=== PATIENT | male | born 1940 | race Caucasian/White ===

== ENCOUNTER 2020-10-27 15:40 | Inpatient (IN) | payer MEDICARE, OTHER, SELFPAY ==
[2020-10-27] VITALS (15 sets, daily range): BP systolic 124–234; BP diastolic 50–96; PULSE 57–97; RESP 16–20; TEMP 36.6–36.7; O2SAT 95–97; BMI 26.2
--- NOTE | ~2020-10-27 | XR_ITS ---
EXAMINATION: XR chest 1V portable DATE: 10/27/2020 16:48 INDICATION: Left chest pain. Dyspnea with exertion. TECHNIQUE: A single frontal view of the chest was obtained. COMPARISON: Chest single view 08/11/2013, CT abdomen and pelvis 08/17/2013 FINDINGS: There are lucencies in the lungs, consistent with emphysema. No pleural effusion or pneumot horax. The heart size is normal. IMPRESSION: 1. Emphysema. Reviewed, dictated and finalized at location B. IMPRESSION: 1. Emphysema.
--- NOTE | ~2020-10-27 | US_ITS ---
EXAMINATION: US retroperitoneal duplex ltd DATE: 10/28/2020 11:17 INDICATION: Hypertension. TECHNIQUE: Multiple grayscale, color Doppler, and pulsed Doppler images of the kidneys and renal jenny andre were obtained. COMPARISON: CT abdomen and pelvis 08/17/2013 FINDINGS: The aorta peak systolic velocity is 51 cm/s. The right renal artery peak systolic velocity is 48 cm/s in the proximal segment, 54 cm/s in the mid segment, and 47 cm/s in the distal segment. The left cynthia al artery peak systolic velocity is 172 cm/s in the proximal segment, 187 cm/s in the mid segment, an d 87 cm/s in the distal segment. IMPRESSION: 1. Moderate to severe left-sided renal artery stenosis. Confirmation with abdomen CTA is recommended if intervention is contemplated. Reviewed, dictated and finalized at location B. IMPRESSION: 1. Moderate to severe left-sided renal artery stenosis. Confirmation with abdo men CTA is recommended if intervention is contemplated.
--- NOTE | 2020-10-27 15:53 | ECG_ITS ---
Measurements Intervals [place] Rate: 100 P: 56 IN: 138 QRS: 36 QRSD: 102 T: 53 QT: 362 QTc: 469 Interpretive Statements SINUS TACHYCARDIA POSSIBLE LEFT ATRIAL ENLARGEMENT CONSIDER INFERIOR INFARCT, AGE INDETERMINATE BORDERLINE ST-T WAVE ABNORMALITY- ANTEROLAT/HIGH LAT LEADS BASELINE WANDER- V3 ABNORMAL ECG Electronically Signed On 10-27-2020 16:21:06 CDT by Ron Carbajal D.O.
--- NOTE | 2020-10-27 16:22 | ED.GENADULT ---
HPI - General Adult General Chief complaint: Recheck/Abnormal Lab/Rx Stated complaint: high blood pressure Time Seen by Provider: 10/27/20 16:17 Source: patient and family Mode of arrival: ambulatory Limitations: no limitations History of Present Illness HPI narrative: 80 years old white male presented to the ED with intermittent pain at the back of left arm with elevated blood pressure over the last 24 hours. Patient denies any chest pain or shortness of breath. Patient used to be on lisinopril 5 mg once a day, increased up to 10 mg once a day over the last 4 days. Blood pressure on arrival to the emergency room 234/69, when I went see the patient in the room 207/122. Currently patient is asymptomatic. History of diabetes, hypertension, hyperlipidemia, thyroidectomy, carotid endarterectomy, gout, GERD, aortofemoral bypass. Patient does not smoke or drink or uses drugs. Patient lives alone. Usually go to [facility] but he was concerned today about the possibility of heart attack that is why he came to us.. Patient denies any fever, chills, nausea, vomiting, shortness of breath, chest pain. Been vaccinated for COVID-19, Pfizer, weeks ago Related Data Allergies Allergy/AdvReac Type Severity Reaction Status Date / Time adhesive tape Allergy Severe BLISTERS Verified 01/26/17 06:44 Review of Systems Review of Systems: Narrative: CONSTITUTIONAL: Denies fever, chills, or sweats. EYES: Denies visual changes, redness, or discharge. ENT: Denies rhinorrhea, congestion, sore throat, or otalgia. CARDIOVASCULAR: Denies chest pain, palpitations, or edema. RESPIRATORY: Denies cough or dyspnea. GASTROINTESTINAL: Denies abdominal pain, nausea, vomiting, or diarrhea. GENITOURINARY: Denies dysuria or hematuria. SKIN: Denies rash or itching. MUSCULOSKELETAL: Denies back pain, joint pain, or myalgia. NEUROLOGIC: Denies headache, numbness, or weakness. PSYCHIATRIC: Denies anxiety or depression. [facility] Family History Family History Father Family history of cardiovascular disease Mother Family history of cardiovascular disease Family history of chronic obstructive pulmonary disease Other Diabetes mellitus Social History Social History Smoking status: Former smoker Smoking end date: 06/06/89 Alcohol intake: never Exam Narrative: Exam Narrative: General appearance: Well-developed, well-nourished Skin: Normal color Head: Normocephalic, nontraumatic Eyes: Clear conjunctiva ENT: Oropharynx normal, ears normal, nose normal Neck: Supple, nontender Chest and respiratory: Airway patent, no respiratory distress, no accessory muscle use Heart: Regular rate/rhythm Abdomen: Soft, nontender, no organomegaly, quiet bowel sounds Vascular: Normal peripheral pulses, normal capillary refill. Musculoskeletal: Normal range of motion, nontender back Neurologic: Alert and oriented ?3, PHARMACIST ASSISTANT is normal as tested, no gross motor deficit Course Course Emergency Course: Stable Vital Signs Vital signs: Vital Signs Pulse Rate 97 10/27/20 15:58 Respiratory Rate 16 10/27/20 15:58 Blood Pressure 234/96 H 10/27/20 15:58 Pulse Oximetry 96 10/27/20 15:58 Pulse Rate 97 10/27/20 15:58 Respiratory Rate 16 10/27/20 15:58 Blood Pressure 234/96 H 10/27/20 15:58 Pulse Oximetry 96 10/27/20 15:58 Medical Decision Making MDM Narrative Medical decision making narrative: Patient presents with intermittent left arm pain and elevated blood pressure. Labs, EKG, chest x-ray, IV Lopressor 5 mg x 3, Nitropaste 1 inch, aspirin. Further plan to follow. Please look
[2020-10-27] MEDS: ASPIRIN 81 MG CHEWABLE TABLET 324 MG PO (16:46)
[2020-10-27] MEDS: NITROGLYCERIN OINTMENT 1 INCH DOSE TRANSDERM (16:48)
[2020-10-27] MEDS: ONDANSETRON INJ 4 MG/2 ML VIAL IV PUSH (16:48)
[2020-10-27] MEDS: METOPROLOL TARTRATE INJ 5 MG/5 ML VIAL IV PUSH ×3 (16:49→17:22)
[2020-10-27 16:55] LABS: Basophils Percent Auto 0.2 % (0.2-1.2); Eosinophils Absolute Auto 0.1 K/mm3 (0-0.3); Eosinophils Percent Auto 1.2 % (0-4.4); Hematocrit 44.6 % (42.0-52.0); Hemoglobin 14.4 g/dL (14.0-18.0); Immature Granulocyte Absolute 0.02 K/mm3 (0.00-0.031); Immature Granulocyte Percent A 0.5 % (0-0.5); Immature Platelet Fraction Pct 5.3 % (0.9-11.2); Lymphocytes Absolute Auto 0.46 K/mm3 (0.9-3.2); Lymphocytes Percent Auto 10.6 % (18.3-44.2); Mean Corpuscular HGB Conc 32.3 g/dl (32-36); Mean Corpuscular Volume 92.9 fl (80-100); Mean Platelet Volume 10.8 fl (7.4-10.4); Monocytes Absolute Auto 0.4 K/mm3 (0.1-0.6); Monocytes Percent Auto 8.1 % (2.6-8.5); Neutrophils Absolute Auto 3.5 K/mm3 (1.3-6.7); Neutrophils Percent Auto 79.4 % (45.5-73.1); Platelet Count Result 128 k/mm3 (150-375); Red Cell Distribution Width 14.2 % (11.5-14.5); White Blood Count 4.3 K/mm3 (4.5-10.0)
[2020-10-27 17:03] LABS: Alanine Aminotransferase 18 U/L (4-50); Albumin Level 4.3 g/dL (3.5-5.1); Alkaline Phosphatase 99 U/L (38-126); Anion Gap 5 mmol/L (8-16); Aspartate Amino Transferase 27 U/L (17-59); Bilirubin,Total 0.9 mg/dL (0.2-1.3); Blood Urea Nitrogen 21 mg/dL (9-20); Calcium 9.5 mg/dL (8.4-10.2); Carbon Dioxide 29 mmol/L (22-30); Chloride 102 mmol/L (98-107); Estimated CRCL calculation 34 ml/min; Estimated Glomerular Filt Rate 49; Glucose 171 mg/dL (75-110); Potassium 3.3 mmol/L (3.4-5.0); Sodium 136 mmol/L (137-145)
[2020-10-27 17:04] LABS: INR 0.9; Prothrombin Time 12.7 Seconds (11.1-14.7)
[2020-10-27 17:16] LABS: NT Pro B Type Natriuretic Pept 1250 pg/mL (5-100)
--- NOTE | 2020-10-27 17:29 | ECG_ITS ---
Measurements Intervals [place] Rate: 57 P: 45 DC: 135 QRS: 22 QRSD: 102 T: 184 QT: 440 QTc: 431 Interpretive Statements SINUS BRADYCARDIA LEFT VENTRICULAR HYPERTROPHY AND ST-T CHANGE BORDERLINE ST-T WAVE ABNORMALITY- LAT/HIGH LAT LEADS BASELINE ARTIFACT- I, II, AVR, AVL, AVF BORDERLINE ECG Electronically Signed On 10-27-2020 20:28:19 CDT by Ron Carbajal D.O.
[2020-10-27] MEDS: POTASSIUM CHLORIDE 20 MEQ TABLET 40 MEQ PO (17:44)
[2020-10-27] MEDS: ENOXAPARIN 80 MG/0.8 ML SYRINGE SUB-Q (17:44)
--- NOTE | 2020-10-27 19:00 | ADMGEN ---
This patient, Anuel Amos, was admitted to IMU Room 205-01 at 1900 on 10/27/2020. Patient/family oriented to hospital policies and general routines including ID bracelet, bed and alarms, visiting hours, pain management, procedures, bathroom and other care routines, personal items, smoking policy, room service/diet, and visiting hours. Information on how to activate the Rapid Response Team has been discussed. Patient/Family are encouraged to report perceived risks to care and to ask questions if they do not understand what they are told or what they should do.
[2020-10-27 19:28] LABS: Glucose Point of Care 116 mg/dl (65-105)
--- NOTE | 2020-10-27 20:29 | PC.NURSE ---
This patient, Anuel Amos, was admitted to IMU Room 205-01. Patient/family oriented to hospital policies and general routines including ID bracelet, bed and alarms, visiting hours, pain management, procedures, bathroom and other care routines, personal items, smoking policy, room service/diet, and visiting hours. Information on how to activate the Rapid Response Team has been discussed. Patient/Family are encouraged to report perceived risks to care and to ask questions if they do not understand what they are told or what they should do.
[2020-10-27] MEDS: amLODIPine BESYLATE 5 MG TABLET PO (22:20)
[2020-10-27] MEDS: ATORVASTATIN 40 MG TABLET PO (22:20)
[2020-10-27] MEDS: GABAPENTIN 300 MG CAPSULE 900 MG PO (22:21)
[2020-10-27] MEDS: lisinopriL 5 MG TABLET PO (22:21)
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
[2020-10-28] VITALS (18 sets, daily range): BP systolic 110–191; BP diastolic 40–82; PULSE 58–92; RESP 16–20; TEMP 36.2–36.6; O2SAT 96–99
--- NOTE | 2020-10-28 | ECHO_ITS ---
Patient Info Name: Anuel Amos Age: 80 years : 1940 Gender: Male Ht: 68 in Wt: 176 lbs BSA: 1.97 m2 HR: 59 bpm BP: 126 / 53 mmHg Technical Quality: Good Exam Date: 10/28/2020 8:54 AM Exam Location: [facility] Pulmonary Patient Status: Inpatient Admit Date: 10/27/2020 Staff Ordering Physician: Percy Burnett MD Adult Care Manager: Marisol Hunter RDCS Attending Provider: Luz Zepeda PA-C Exam Type: CA echo doppler color flow Study Info Complete two-dimensional, color flow and Doppler transthoracic echocardiogram is performed. Summary 1. Complete two-dimensional, color flow and Doppler transthoracic echocardiogram is performed. 2. Left ventricular chamber dimension is normal. 3. Left ventricular systolic function is normal, estimated at 50-55%. 4. There is moderate aortic valve sclerosis with mild restricted leaflet motion however no significant aortic stenosis. 5. There is mild mitral valve regurgitation. 6. There is trace tricuspid valve regurgitation. 7. Dilated inferior vena cava with <50% collapse upon inspiration consistent with elevated right atrial pressure. 8. The prox ascending aorta size is normal. 9. There is no pericardial effusion. Left Ventricle Left ventricular chamber dimension is normal. Left ventricular systolic function is normal, estimated at 50-55%. There is no increased left ventricular wall thickness. Left ventricular septal wall motion is normal. The left ventricular diastolic function is grade II diastolic dysfunction. Right Ventricle Right ventricular chamber dimension is normal. Right ventricular systolic function is normal. Left Atria Left atrial chamber dimension is normal. Right Atria Right atrial chamber dimension is normal. Aortic Valve The aortic valve is trileaflet. There is moderate aortic valve sclerosis with mild restricted leaflet motion however no significant aortic stenosis. There is no aortic valve stenosis. There is mild aortic valve regurgitation. Pulmonic Valve The pulmonic valve is normal. There is no pulmonic valve stenosis. There is no pulmonic regurgitation. Mitral Valve The mitral valve has normal leaflets. There is no mitral valve stenosis. There is mild mitral valve regurgitation. Tricuspid Valve The tricuspid valve leaflets are normal. There is trace tricuspid valve regurgitation. Unable to estimate pulmonary artery systolic pressure due to poor TR jet. Pericardium/Pleural The pericardium appears normal. There is no pericardial effusion. Inferior Vena Cava Dilated inferior vena cava with <50% collapse upon inspiration consistent with elevated right atrial pressure. Aorta The aortic root size at the sinus of Valsalva is normal. The prox ascending aorta size is normal. Left Ventricular Outflow Tract Name Value Normal LVOT 2D LVOT Diameter 2.2 cm LVOT Doppler LVOT Peak Velocity 64 cm/s LVOT Peak Gradient 1 mmHg LVOT Mean Gradient 1 mmHg LVOT VTI 16 cm LVOT VTI/AV VTI Ratio
[2020-10-28 04:55] LABS: Basophils Percent Auto 0.3 % (0.2-1.2); Eosinophils Absolute Auto 0.1 K/mm3 (0-0.3); Eosinophils Percent Auto 2.3 % (0-4.4); Hematocrit 35.8 % (42.0-52.0); Hemoglobin 11.4 g/dL (14.0-18.0); Immature Granulocyte Absolute 0.01 K/mm3 (0.00-0.031); Immature Granulocyte Percent A 0.3 % (0-0.5); Lymphocytes Absolute Auto 0.82 K/mm3 (0.9-3.2); Lymphocytes Percent Auto 20.8 % (18.3-44.2); Mean Corpuscular HGB Conc 31.8 g/dl (32-36); Mean Corpuscular Hemoglobin 29.3 pg (26-34); Mean Platelet Volume 10.7 fl (7.4-10.4); Monocytes Absolute Auto 0.4 K/mm3 (0.1-0.6); Monocytes Percent Auto 10.9 % (2.6-8.5); Neutrophils Absolute Auto 2.6 K/mm3 (1.3-6.7); Neutrophils Percent Auto 65.4 % (45.5-73.1); Platelet Count Result 120 k/mm3 (150-375); Red Blood Count 3.89 M/mm3 (4.6-6.20)
[2020-10-28 05:09] LABS: Alanine Aminotransferase 13 U/L (4-50); Albumin Level 3.1 g/dL (3.5-5.1); Alkaline Phosphatase 78 U/L (38-126); Anion Gap 3 mmol/L (8-16); Aspartate Amino Transferase 20 U/L (17-59); Bilirubin,Total 0.6 mg/dL (0.2-1.3); Blood Urea Nitrogen 22 mg/dL (9-20); Calcium 8.6 mg/dL (8.4-10.2); Carbon Dioxide 32 mmol/L (22-30); Chloride 104 mmol/L (98-107); Estimated CRCL calculation 30 ml/min; Estimated Glomerular Filt Rate 39; Glucose 102 mg/dL (75-110); Magnesium 1.6 mg/dL (1.6-2.3); Potassium 3.7 mmol/L (3.4-5.0); Sodium 139 mmol/L (137-145)
[2020-10-28 05:15] LABS: Hemoglobin A1C 7.4 % (<5.7)
[2020-10-28] MEDS: LEVOTHYROXINE SODIUM 150 MCG TABLET PO (06:23)
--- NOTE | 2020-10-28 06:26 | PC.NURSE ---
Reema held this AM in anticipation of a cardiac cath today.
[2020-10-28 08:21] LABS: Glucose Point of Care 111 mg/dl (65-105)
--- NOTE | 2020-10-28 08:56 | PM.CNCAR ---
Assessment and Plan Assessment and plan (1) Non-ST elevation OR (NSTEMI): Code(s): I21.4 - Non-ST elevation (NSTEMI) myocardial infarction Status: Acute Assessment and Plan: 80 y/o male with no known cardiac history however extensive cardiovascular risk factors including HTN, DM, HLD,CKD, ex smoker as well as strong family history of early onset CAD who presents with left arm pain, HTN emergency and ruled in for OR Trop peaked at 3.7 He is pain free now He was started on therapeutic dose of Lovenox and will need cardiac cathetarization. His creatinine is 1.7 from 1.4 yesterday. Will follow 2D echo and decide on timing of cardiac cath. If EF low or regional wall motion abnormalities noted will plan [facility] today, otherwise will postpone pending stabilization of kidney function. Continue ASA and statin. Check fasting lipid profile. Will add Metoprolol 25 mg daily to his regimen (2) Hypertension, uncontrolled: Code(s): I10 - Essential (primary) hypertension Status: Chronic Assessment and Plan: 230/100 on admission. Now down to 150/80. Will add Metoprolol. Hold Lisinopril 2.5 mg as creatinine rising (3) DM2 (diabetes mellitus, type 2): Code(s): E11.9 - Type 2 diabetes mellitus without complications Status: Chronic Assessment and Plan: HgA1c 7.4 History of Present Illness History of Present Illness Consult date/time: 10/28/20 08:56 80 y/o male with no known cardiac history however extensive cardiovascular risk factors including HTN, DM, HLD,CKD, ex smoker as well as strong family history of early onset CAD who presents with shortness of breath and left arm pain He reports on and off shortness of breath for the last week that feels as if he can't take a full breath. Yesterday he developed upper left arm pain hence he decided to seek medical attention. He rule in for OR with elevated troponin that has peaked at 3.7. He was started on therapeutic dose of Lovenox. His BP was markedly elevated on admission at 230/100. He feels much better this am with no recurrence of left arm pain. He never had any chest pain. He is breathing better as well. His EKG showed sinus rhythm with ST depression in inferior and lateral leads. He has chronic kidney disease and is followed by operative supervisor at the [place]. His Cr on admission was 1.4 and went up to 1.7 this am. Labs otherwise and notable for HgA1c of 7.4. His TSH is elevated at 5.8. free T4 pending. Lipid profile was not sent He quit smoking 24 years ago. Was heavy smoker (packs a day) before he had quit His son in his early 50s with OR. His other son also had OR in his early 50s and has stent placed Reason For Visit: NSTEMI/uncontrolled hypertension/hypokalemia/renal Review of Systems Review of Systems: All systems reviewed & are unremarkable except as noted in HPI and below Constitutional: Constitutional: Denies fatigue and Denies headache(s) Eyes: Eyes: Denies blurry vision ENT: Reports Normal hearing present and Denies headache(s) Cardiovascular: Cardiovascular: Denies chest pain, Denies diaphoresis, Denies pedal edema, Denies leg edema, Denies lightheadedness, Denies palpitations and Denies dyspnea Respiratory: Respiratory: Denies cough and Denies dyspnea Gastrointestinal: Gastrointestinal: Denies abdominal pain Musculoskeletal: Musculoskeletal: Denies back pain Neurologic: Reports Normal hearing present and Denies headache(s) Psychiatric: Psychiatric: Denies anxiety Endocrine: Endocrine: Denies fatigue and Denies palpitations [facility] Past Medical History Medical History (Updated 10/27/20 @ 22:32 by Bianca Alfonso NP) BPH (benign prostatic hyperplasia) Chronic GERD Diabetic neuropathy DM2 (diabetes mellitus, type 2) Gout Hyperlipidemia Hypothyroidism Surgical History Surgical History (Updated 10/27/20 @ 22:32 by Bianca Alfonso NP) H/O aorto-femoral bypass H/O carotid endarterectomy H/O thyroidectomy
[2020-10-28] MEDS: OMEGA 3 POLYUNSAT FATTY ACIDS 1 GM CAP PO (09:58)
[2020-10-28] MEDS: POTASSIUM CHLORIDE 20 MEQ TABLET.ER PO (09:58)
[2020-10-28] MEDS: amLODIPine BESYLATE 5 MG TABLET PO ×2 (09:59→18:29)
[2020-10-28] MEDS: PANTOPRAZOLE 40 MG TABLET PO (09:59)
[2020-10-28] MEDS: GABAPENTIN 300 MG CAPSULE PO (10:00)
--- NOTE | 2020-10-28 10:16 | PM.IMPN ---
Progress Note: A&P Assessment and Plan (1) Non-ST elevation [place] (NSTEMI): Code(s): I21.4 - Non-ST elevation (NSTEMI) myocardial infarction Status: Acute Assessment and Plan: -troponins elevated last being 3.240 but patient is now asymptomatic -echo reviewed by Cardiology he reports a normal EF with no significant valvular disease -chest x-ray clear, appears euvolemic. EKG reviewed with some mild T-wave abnormalities in the lateral leads. 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 He is high risk for cardiovascular disease and I do believe he should have an ischemic evaluation. -creatinine more elevated, could be due to elevated blood pressure on admission. Could be a component of renal artery stenosis since he has known vascular disease. Will order ultrasound of the renal arteries and obtain records from his termite treater -continue therapeutic Lovenox, atorvastatin, and metoprolol. Jitendra/Arb held due to JENNIFFER -spoke with Dr. Bentley about the plan of care (2) Acute on chronic kidney failure: Code(s): N17.9 - Acute kidney failure, unspecified; N18.9 - Chronic kidney disease, unspecified Status: Acute Assessment and Plan: Pt states he has a hx of this and has a termite treater but cannot remember his name. He is at the [place] -He thinks his last Cr was 1.3 -Obtain records -obtain UA as well as u/s of the renal arteries/kidneys -Pt had significantly elevated bp on admission -Cardiology recommends nephrology consult as he may need cardiac cath -Monitor with daily labs (3) DM2 (diabetes mellitus, type 2): Code(s): E11.9 - Type 2 diabetes mellitus without complications Status: Chronic Assessment and Plan: Last glucose 111 -metformin held -continue sliding scale insulin and diabetic diet -last A1c 7.4 (4) Hypertension, uncontrolled: Code(s): I10 - Essential (primary) hypertension Status: Chronic Assessment and Plan: Blood pressure was 154/59 this morning but was elevated further on admission up to 234/96 -lisinopril held due to JENNIFFER -continue amlodipine and now metoprolol added, monitor heart rate -add p.r.n. hydralazine for systolic greater than 175 -check for renal artery stenosis (5) Hypokalemia: Code(s): E87.6 - Hypokalemia Status: Acute Assessment and Plan: Resolved (6) BPH (benign prostatic hyperplasia): Code(s): N40.0 - Benign prostatic hyperplasia without lower urinary tract symptoms Status: Chronic Assessment and Plan: Continue with finasteride (7) Hyperlipidemia: Code(s): E78.5 - Hyperlipidemia, unspecified Status: Chronic Assessment and Plan: Continue with simvastatin -lipid panel ordered (8) Gout: Code(s): M10.9 - Gout, unspecified Status: Chronic Assessment and Plan: Continue with allopurinol -no acute symptoms (9) Hypothyroidism: Code(s): E03.9 - Hypothyroidism, unspecified Status: Chronic Assessment and Plan: Continue with levothyroxine -TSH mildly high, await T4 (10) Diabetic neuropathy: Code(s): E11.40 - Type 2 diabetes mellitus with diabetic neuropathy, unspecified Status: Chronic Assessment and Plan: Continue with gabapentin (11) Chronic GERD: Code(s): K21.9 - Gastro-esophageal reflux disease without esophagitis Status: Chronic Assessment and Plan: No acute symptoms, continue with omeprazole (12) Pancytopenia: Code(s): D61.818 - Other pancytopenia Status: Acute Assessment and Plan: Mild, Noted on labs -will add anemia labs for the morning -monitor platelets while on Lovenox -no signs of viral illness -may need to follow-up with hematology (13) Emphysema lung: Code(s): J43.9 - Emphysema, unspecified Status: Acute Assessment
[2020-10-28 10:53] LABS: Free T4 Free Thyroxine Reflex 1.32 ng/dL (0.78-2.19)
[2020-10-28 11:58] LABS: Hematocrit 39.7 % (42.0-52.0); Hemoglobin 12.8 g/dL (14.0-18.0)
[2020-10-28 11:59] LABS: Total Triiodothyronine (T3) 0.79 NG/ML (0.97-1.69)
--- NOTE | 2020-10-28 12:05 | PM.CNNEP ---
Assessment and Plan Assessment and plan (1) JENNIFFER (acute kidney injury): Code(s): N17.9 - Acute kidney failure, unspecified Status: Acute Assessment and Plan: etiology unclear due to cardiac event/NSTEMI in of itself(?) did apparently have a CT scan with contrast about a week ago...contributing factor? fluctuating BP readings? agree with holding ANN-I for now follow trend of repeat labs and UOP (2) Stage 3a chronic kidney disease: Code(s): N18.31 - Chronic kidney disease, stage 3a Status: Chronic Assessment and Plan: follow with Dr. Ellis at [facility] baseline creatinine runs around 1.3 - 1.5mg/dl in the last year due to HTN, diabetes, vascular disase, and age-related change (3) Non-ST elevation PR (NSTEMI): Code(s): I21.4 - Non-ST elevation (NSTEMI) myocardial infarction Status: Acute Assessment and Plan: as noted by evaluation on admission Cardiology following at risk for contrast nephropathy given need for cardiac catheterization - to reduce risk of CHAKA: -- hold any potential nephrotoxic agents (ANN/ARB, diuretics, NSAIDs...etc) -- limit amount of contrast used if possible -- pre/post IVF hydration within the limits of respiratory status continue medical management (4) Hypertension, uncontrolled: Code(s): I10 - Essential (primary) hypertension Status: Chronic Assessment and Plan: quite elevated on admission/at this time left NISHA noted by renal duplex -- consider intervention with BP fails to respond to conservative therapy would try to avoid overcontrol of BP for fear this may result in renal hypoperfusion and worsen renal function follow trend of hemodynamics (5) DM2 (diabetes mellitus, type 2): Code(s): E11.9 - Type 2 diabetes mellitus without complications Status: Chronic Additional Plan follow accuchecks glycemic control Will continue to follow. History of Present Illness Reason for Consult Consult date: 10/28/20 Chief Complaint Chief complaint: NSTEMI/uncontrolled hypertension/hypokalemia/renal History of Present Illness Narrative: The patient is a 80 y/o male with a past medical history as outlined below who presented to [facility] with complaints of chest pain. He states that he has been having on and off shortness of breath for the last week to the point where he feels like he cannot a full and deep inspiration/expiration. On the day of admission, he noted upper left arm pain that he had never had before in association with the symptoms of shortness of breath. He never had any specific complaints of chest pain, palpitations, dizziness, lightheadedness, or syncope. However, given the persistence of the shortness of breath and with the new cysts symptom of left arm pain, he decided to come to the emergency room for further evaluation Workup and evaluation emergency room demonstrated the patient to be quite hypertensive with a systolic BP in the 230s. Routine blood test demonstrated evidence of mild renal insufficiency but with no other significant findings although his troponin was elevated. given these constellation of symptoms in conjunction with his multiple risk factors for coronary artery disease, he was admitted the hospital for further evaluation and therapy. Since his admission, he has been ruled in for a non ST elevation PR with a peak troponin of 3.7. He is on currently anticoagulation and maximal medical therapy at this time. He has been seen by Cardiology as well with the tentative plan for a possible cardiac catheterization tomorrow. He otherwise does not appear to be any acute distress. Renal consultation was requested after was noted that his creatinine has worsened since his admission. He was admitted with a creatinine of 1.4 mg/dL which has subsequently increased to 1.7 mg[facility]
[2020-10-28 12:29] LABS: Glucose Point of Care 112 mg/dl (65-105)
[2020-10-28 12:30] LABS: Cholesterol 134 mg/dL (0-200); HDL Direct 37 mg/dL; Triglycerides 131 mg/dL (<150)
[2020-10-28 12:52] LABS: LDL Cholesterol Direct 66 mg/dL
[2020-10-28] MEDS: METOPROLOL SUCCINATE EXT REL 25 MG TABCR PO (13:32)
[2020-10-28 16:53] LABS: Glucose Point of Care 117 mg/dl (65-105)
[2020-10-28 17:11] LABS: Add Urine Microscopic? YES; Appearance Urine Clear (Clear); Bilirubin Urine Negative (Negative); Blood Urine Negative (Negative); Color Urine Yellow (Yellow); Glucose Urine UA 3+ mg/dL (Negative); Ketones Urine Negative (Negative); Leukocyte Esterase Ur Negative LEU/UL (Negative); Mucus Urine Rare /lpf; Nitrate Urine Negative (Negative); Protein Urine 1+ mg/dL (Negative); RBC Urine 0-2 /hpf (0-2); Squamous Epithelial Cell Urine Rare /hpf (Few); Urobilinogen Urine Negative mg/dL (<2.0); WBC Urine 0-3 /hpf
[2020-10-28] MEDS: allopurinoL 100 MG TABLET PO (18:29)
[2020-10-28] MEDS: ENOXAPARIN 80 MG/0.8 ML SYRINGE SUB-Q (18:29)
[2020-10-28] MEDS: INSULIN GLARGINE (*BKC) 100 UNITS/ML 14 UNITS SUB-Q (18:29)
[2020-10-28 19:57] LABS: Glucose Point of Care 181 mg/dl (65-105)
[2020-10-28] MEDS: ASPIRIN 81 MG CHEWABLE TABLET PO (20:25)
[2020-10-28] MEDS: ATORVASTATIN 40 MG TABLET PO (20:26)
[2020-10-28] MEDS: GABAPENTIN 300 MG CAPSULE 900 MG PO (20:26)
[2020-10-28] MEDS: TAMSULOSIN HCL 0.4 MG CAPSULE PO (20:27)
[2020-10-28] MEDS: FINASTERIDE 5 MG TABLET PO (20:28)
[2020-10-29] VITALS (30 sets, daily range): BP systolic 117–202; BP diastolic 54–81; PULSE 53–75; RESP 16–22; TEMP 35.9–36.6; O2SAT 92–100
[2020-10-29 05:06] LABS: Anion Gap 2 mmol/L (8-16); Blood Urea Nitrogen 21 mg/dL (9-20); Calcium 8.8 mg/dL (8.4-10.2); Carbon Dioxide 35 mmol/L (22-30); Chloride 102 mmol/L (98-107); Estimated CRCL calculation 32 ml/min; Estimated Glomerular Filt Rate 42; Glucose 108 mg/dL (75-110); INR 0.9; Potassium 4.3 mmol/L (3.4-5.0); Prothrombin Time 13.1 Seconds (11.1-14.7); Sodium 139 mmol/L (137-145)
[2020-10-29 05:13] LABS: Transferrin 271 mg/dL (206-381)
[2020-10-29 05:18] LABS: Iron 53 ug/dL (49-181)
[2020-10-29 05:27] LABS: Percent Iron Saturation 14 % (20-50)
[2020-10-29] MEDS: LEVOTHYROXINE SODIUM 150 MCG TABLET PO (05:28)
[2020-10-29] MEDS: ENOXAPARIN 80 MG/0.8 ML SYRINGE SUB-Q (05:28)
[2020-10-29 06:13] LABS: Folic Acid 13.2 ng/mL (2.76->20)
[2020-10-29 07:31] LABS: Hematocrit 36.8 % (42.0-52.0); Hemoglobin 11.8 g/dL (14.0-18.0)
[2020-10-29 08:06] LABS: Glucose Point of Care 111 mg/dl (65-105)
[2020-10-29] MEDS: PANTOPRAZOLE 40 MG TABLET PO (08:24)
[2020-10-29] MEDS: allopurinoL 300 MG TABLET PO (08:25)
[2020-10-29] MEDS: OMEGA 3 POLYUNSAT FATTY ACIDS 1 GM CAP PO (08:25)
[2020-10-29] MEDS: amLODIPine BESYLATE 5 MG TABLET PO ×2 (08:25→20:26)
[2020-10-29] MEDS: GABAPENTIN 300 MG CAPSULE PO (08:25)
[2020-10-29] MEDS: POTASSIUM CHLORIDE 20 MEQ TABLET.ER PO (08:25)
[2020-10-29] MEDS: CYANOCOBALAMIN INJ 1,000 MCG/ML VIAL 1000 MCG IM (08:26)
[2020-10-29] MEDS: METOPROLOL SUCCINATE EXT REL 25 MG TABCR PO (08:32)
--- NOTE | 2020-10-29 09:48 | PM.PNCARD ---
Progress Note: A&P Assessment and Plan (1) Non-ST elevation PR (NSTEMI): Code(s): I21.4 - Non-ST elevation (NSTEMI) myocardial infarction Status: Acute Assessment and Plan: 80 y/o male with no known cardiac history however extensive cardiovascular risk factors including HTN, DM, HLD,CKD, ex smoker as well as strong family history of early onset CAD who presents with left arm pain, HTN emergency and ruled in for PR Trop peaked at 3.7 He is pain free now EF shows normal LV function and no significant valvular disease His Creatinine is 1.6 this am which is not far from baseline. Will plan LHC/coronary angiogram this afternoon. Minimize contrast use. Explained procedure in details to patient including risks of bleeding, infection, stroke and nephropathy. he is agreeable to proceed Continue ASA. He never received second antiplatelet in case he needs CABG Continue Atrovastatin. LDL is 66. Started Metoprolol 25 mg daily yesterday. HR down to 50s. Will decrease dose to 12.5 mg daily. (2) Hypertension, uncontrolled: Code(s): I10 - Essential (primary) hypertension Status: Chronic Assessment and Plan: 230/100 on admission. Now down to 150/80. Will add Metoprolol. Hold Lisinopril 2.5 mg as creatinine rising (3) DM2 (diabetes mellitus, type 2): Code(s): E11.9 - Type 2 diabetes mellitus without complications Status: Chronic Assessment and Plan: HgA1c 7.4 Subjective Date/time seen: 10/29/20 09:48 He continues to feel well. No recurrence of left arm pain since admission. Shortness of breath has also significantly improved Review of Systems Review of Systems: All systems reviewed & are unremarkable except as noted in HPI and below Constitutional: Constitutional: Denies fatigue and Denies headache(s) Eyes: Eyes: Denies blurry vision ENT: Reports Normal hearing present and Denies headache(s) Cardiovascular: Cardiovascular: Denies chest pain, Denies diaphoresis, Denies pedal edema, Denies leg edema, Denies lightheadedness, Denies palpitations and Denies dyspnea Respiratory: Respiratory: Denies cough and Denies dyspnea Gastrointestinal: Gastrointestinal: Denies abdominal pain Musculoskeletal: Musculoskeletal: Denies back pain Neurologic: Reports Normal hearing present and Denies headache(s) Psychiatric: Psychiatric: Denies anxiety Endocrine: Endocrine: Denies fatigue and Denies palpitations Exam Const: General: no acute distress Eyes: Sclera: sclerae normal Neck: Neck: no JVD Carotids: no bruits Resp: Effort & Inspection: normal respiratory effort Auscultation: clear to auscultation bilaterally Cardio: Jugular venous distension: no JVD Rate: regular rate and not tachycardic Rhythm: regular rhythm Heart sounds: S1 normal heart sound present, S2 normal heart sound present, no gallops, no murmurs and no rubs Peripheral pulses: Peripheral pulses 2+ throughout Skin: General skin exam: normal color Neuro: Cranial nerves: Yes Normal hearing present Speech: normal speech Extrem: General: normal to inspection and no edema Psych: Affect: normal affect Objective Data Vital Signs Vital Signs: Vital Signs - 24 hr 10/28/20 10:00 10/28/20 12:00 10/28/20 13:32 Temperature 36.2 C L Pulse Rate 69 92 67 Respiratory Rate 20 Blood Pressure 191/82 H Pulse Oximetry 99 10/28/20 14:00 10/28/20 16:00 10/28/20 18:00 Temperature 36.2 C L Pulse Rate 65 69 61 Respiratory Rate 20 Blood Pressure 157/67 H Pulse Oximetry 98 10/28/20 19:36 10/28/20 20:00 10/28/20 22:00 Temperature 36.6 C Pulse Rate 62 62 62 Respiratory Rate 18 18 Blood Pressure 119/40 L Pulse Oximetry 99 99 10/28/20 22:06 10/28/20 23:10 10/28/20 23:14 Temperature 36.6 C Pulse Rate 75 76 Respiratory Rate 20 20 Blood Pressure 110/43 L Pulse Oximetry 97 97 97 10/29/20 02:00 10/29/20 04:00 10/29/20 06:00 Temperature 36.6 C Pulse Rate 58 L 53 L
--- NOTE | 2020-10-29 10:27 | PM.IMPN ---
Progress Note: A&P Assessment and Plan (1) Non-ST elevation ME (NSTEMI): Code(s): I21.4 - Non-ST elevation (NSTEMI) myocardial infarction Status: Acute Assessment and Plan: -troponins elevated last being 3.240 but patient is now asymptomatic -echo reviewed by Cardiology he reports a normal EF with no significant valvular disease -chest x-ray clear, appears euvolemic. EKG reviewed with some mild T-wave abnormalities in the lateral leads. 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 He is high risk for cardiovascular disease and they plan to do a cardiac catheterization later today. -creatinine about the same today. Sounds like he has chronic kidney disease which this may be a little worse. Could be due to significant hypertension on admission. 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 -continue therapeutic Lovenox, atorvastatin, and metoprolol (dose lowered today). 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 He is at the [facility] -creatinine this morning was 1.6. Pt had a CT with dye last week according to him, could be a factor -records from [facility] shows Cr 1.3 on 10/17/20 but up to 1.49 in 2019 -Pt sees Dr. Ellis at the [facility] -U/s shows mod/severe left sided NISHA. Monitor Cr closely if he goes back on lisinopril -Pt had significantly elevated bp on admission -nephrology consult (3) DM2 (diabetes mellitus, type 2): Code(s): E11.9 - Type 2 diabetes mellitus without complications Status: Chronic Assessment and Plan: Last glucose 111 -metformin held -continue sliding scale insulin and diabetic diet -last A1c 7.4 (4) Hypertension, uncontrolled: Code(s): I10 - Essential (primary) hypertension Status: Chronic Assessment and Plan: Blood pressure was 143/54 this morning but was elevated further on admission up to 234/96 -lisinopril held due to JENNIFFER -continue amlodipine and now metoprolol -add p.r.n. hydralazine for systolic greater than 175 (5) Hypokalemia: Code(s): E87.6 - Hypokalemia Status: Acute Assessment and Plan: Resolved (6) BPH (benign prostatic hyperplasia): Code(s): N40.0 - Benign prostatic hyperplasia without lower urinary tract symptoms Status: Chronic Assessment and Plan: Continue with finasteride (7) Hyperlipidemia: Code(s): E78.5 - Hyperlipidemia, unspecified Status: Chronic Assessment and Plan: Continue with simvastatin -lipid panel ordered (8) Gout: Code(s): M10.9 - Gout, unspecified Status: Chronic Assessment and Plan: Continue with allopurinol -no acute symptoms (9) Hypothyroidism: Code(s): E03.9 - Hypothyroidism, unspecified Status: Chronic Assessment and Plan: Continue with levothyroxine -TSH mildly high, re-check in 6 weeks after acute illness has resolved (10) Diabetic neuropathy: Code(s): E11.40 - Type 2 diabetes mellitus with diabetic neuropathy, unspecified Status: Chronic Assessment and Plan: Continue with gabapentin (11) Chronic GERD: Code(s): K21.9 - Gastro-esophageal reflux disease without esophagitis Status: Chronic Assessment and Plan: No acute symptoms, continue with omeprazole (12) Pancytopenia: Code(s): D61.818 - Other pancytopenia Status: Acute Assessment and Plan: Mild, Noted on labs and noted on his [facility] labs in the past as well -Pt b12 is low, will replenish -monitor platelets while on Lovenox -no signs of viral illness -may need to follow-up with hem
[2020-10-29 12:30] LABS: Glucose Point of Care 149 mg/dl (65-105)
--- NOTE | 2020-10-29 12:59 | PM.PNNEP ---
Progress Note: A&P Assessment and Plan (1) JENNIFFER (acute kidney injury): Code(s): N17.9 - Acute kidney failure, unspecified Status: Acute Assessment and Plan: etiology unclear due to cardiac event/NSTEMI in of itself(?) did apparently have a CT scan with contrast about a week ago...contributing factor? fluctuating BP readings? agree with holding ANN-I for now follow trend of repeat labs and UOP (2) Stage 3a chronic kidney disease: Code(s): N18.31 - Chronic kidney disease, stage 3a Status: Chronic Assessment and Plan: follow with Dr. Ellis at [facility] baseline creatinine runs around 1.3 - 1.5mg/dl in the last year due to HTN, diabetes, vascular disease, and age-related change (3) Non-ST elevation TN (NSTEMI): Code(s): I21.4 - Non-ST elevation (NSTEMI) myocardial infarction Status: Acute Assessment and Plan: as noted by evaluation on admission Cardiology following noted plans for cardiac cath today at risk for contrast nephropathy... - to reduce risk of CHAKA: -- hold any potential nephrotoxic agents (ANN/ARB, diuretics, NSAIDs...etc) -- limit amount of contrast used if possible -- pre/post IVF hydration within the limits of respiratory status continue medical management (4) Hypertension, uncontrolled: Code(s): I10 - Essential (primary) hypertension Status: Chronic Assessment and Plan: quite elevated on admission better at this time left NISHA noted by renal duplex -- consider intervention if BP fails to respond to conservative therapy would try to avoid overcontrol of BP for fear this may result in renal hypoperfusion and worsen renal function follow trend of hemodynamics (5) DM2 (diabetes mellitus, type 2): Code(s): E11.9 - Type 2 diabetes mellitus without complications Status: Chronic Assessment and Plan: follow accuchecks glycemic control Will continue to follow. Subjective Date/time seen: 10/29/20 12:59 Appears to be doing reasonably well; no further chest pain or shortness of breath at this time; no apparent distress voiced on my visit with him; no events/issues overnight or earlier this AM. Exam Narrative: Exam Narrative: General: WD/WN female in NAD Heart: normal S1 and S2; no rub Lungs: clear to auscultation Abdomen: soft, nontender, nondistended, positive bowel sounds Extremities: no cyanosis or clubbing; no edema Skin: warm and dry Objective Data Vital Signs Vital Signs: Vital Signs Temp Pulse Pulse Resp BP Pulse Ox 10/29/20 12:41 35.9 C L 58 L 20 151/56 H 100 10/29/20 12:00 56 L 10/29/20 10:00 60 10/29/20 08:32 61 10/29/20 08:03 36.0 C L 56 L 22 H 143/54 H 97 10/29/20 08:00 59 L 10/29/20 06:00 62 10/29/20 04:00 36.6 C 53 L 18 117/65 98 10/29/20 02:00 58 L 10/28/20 23:14 76 20 97 10/28/20 23:10 36.6 C 75 20 110/43 L 97 10/28/20 22:06 97 10/28/20 22:00 62 10/28/20 20:00 62 18 99 10/28/20 19:36 36.6 C 62 18 119/40 L 99 Intake/Output Intake/Output: Intake & Output 10/26/20 10/27/20 10/28/20 10/29/20 23:59 23:59 23:59 23:59 Intake Total 2190 460 Output Total 2075 1450 Balance 115 -990 Meds/Results Medications: Active Medications Generic Name Dose Route Start Last Admin Trade Name Santoq PRN Reason Stop Dose Admin Allopurinol 300 mg 10/29/20 08:00 10/29/20 08:25 Allopurinol 300 Mg Tablet PO 300 mg DAILY@0800 [facility] Administration Allopurinol 100 mg 10/28/20 17:00 10/28/20 18:29 Allopurinol 100 Mg Tablet PO 100 mg 1700 [facility] Administration Amlodipine Besylate 5 mg 10/27/20 21:35 10/29/20 08:25 Amlodipine Besylate 5 Mg Tablet PO 5 mg BID PATRICIA Administration Aspirin 81 mg 10/28/20 21:00 10/28/20 20:25 Aspirin 81 Mg Chewable Tablet PO
--- NOTE | 2020-10-29 12:59 | P.PNNP_ITS ---
Progress Note: A&P Assessment and Plan (1) JENNIFFER (acute kidney injury): Code(s): N17.9 - Acute kidney failure, unspecified Status: Acute Assessment and Plan: * etiology unclear * due to cardiac event/NSTEMI in of itself(?) * did apparently have a CT scan with contrast about a week ago...contributing factor? * fluctuating BP readings? * agree with holding ANN-I for now * follow trend of repeat labs and UOP (2) Stage 3a chronic kidney disease: Code(s): N18.31 - Chronic kidney disease, stage 3a Status: Chronic Assessment and Plan: * follow with Dr. Ellis at [facility] * baseline creatinine runs around 1.3 - 1.5mg/dl in the last year * due to HTN, diabetes, vascular disease, and age-related change (3) Non-ST elevation SD (NSTEMI): Code(s): I21.4 - Non-ST elevation (NSTEMI) myocardial infarction Status: Acute Assessment and Plan: * as noted by evaluation on admission * Cardiology following * noted plans for cardiac cath today * at risk for contrast nephropathy... - to reduce risk of CHAKA: -- hold any potential nephrotoxic agents (ANN/ARB, diuretics, NSAIDs...etc) -- limit amount of contrast used if possible -- pre/post IVF hydration within the limits of respiratory status * continue medical management (4) Hypertension, uncontrolled: Code(s): I10 - Essential (primary) hypertension Status: Chronic Assessment and Plan: * quite elevated on admission * better at this time * left NISHA noted by renal duplex -- consider intervention if BP fails to respond to conservative therapy * would try to avoid overcontrol of BP for fear this may result in renal hypoperfusion and worsen renal function * follow trend of hemodynamics (5) DM2 (diabetes mellitus, type 2): Code(s): E11.9 - Type 2 diabetes mellitus without complications Status: Chronic Assessment and Plan: * follow accuchecks * glycemic control Will continue to follow. Subjective Date/time seen: 10/29/20 12:59 Appears to be doing reasonably well; no further chest pain or shortness of breath at this time; no apparent distress voiced on my visit with him; no events/issues overnight or earlier this AM. Exam Narrative: Exam Narrative: General: WD/WN female in NAD Heart: normal S1 and S2; no rub Lungs: clear to auscultation Abdomen: soft, nontender, nondistended, positive bowel sounds Extremities: no cyanosis or clubbing; no edema Skin: warm and dry Objective Data Vital Signs Vital Signs: Vital Signs Temp Pulse Pulse Resp BP Pulse Ox 10/29/20 12:41 35.9 C L 58 L 20 151/56 H 100 10/29/20 12:00 56 L 10/29/20 10:00 60 10/29/20 08:32 61 10/29/20 08:03 36.0 C L 56 L 22 H 143/54 H 97 10/29/20 08:00 59 L 10/29/20 06:00 62 10/29/20 04:00 36.6 C 53 L 18 117/65 98 10/29/20 02:00 58 L 10/28/20 23:14 76 20 97 10/28/20 23:10 36.6 C 75 20 110/43 L 97 10/28/20 22:06 97 10/28/20 22:00 62 10/28/20 20:00 62 18 99 10/28/20 19:36 36.6 C 62 18 119/40 L 99 Intake/Output Intake/Output: Intake & Output 10/26/20 10/27/20 10/28/20 10/29/20 23:59 23:59 2
--- NOTE | 2020-10-29 15:13 | WPDMODSED ---
Moderate Sedation Note-Pt Data Patient Data Allergies Allergy/AdvReac Type Severity Reaction Status Date / Time adhesive tape Allergy Severe BLISTERS Verified 01/26/17 06:44 Home Medications Medication Instructions Recorded Confirmed Type allopurinol 400 mg PO DAILY 10/27/20 10/27/20 History aspirin 81 mg PO HS 10/27/20 10/28/20 History atorvastatin 40 mg PO HS 10/27/20 10/27/20 History finasteride 5 mg PO HS 10/27/20 10/28/20 History gabapentin 300 mg PO DAILY 10/27/20 10/27/20 History gabapentin 900 mg PO HS 10/27/20 10/27/20 History insulin glargine 14 unit SUBCUT QPM 10/27/20 10/27/20 History levothyroxine 150 mcg PO QAM 10/27/20 10/27/20 History lisinopril 2.5 mg PO DAILY 10/27/20 10/27/20 History metformin 500 mg PO BID 10/27/20 10/27/20 History omega-3 fatty acids-vitamin E 1 cap PO DAILY 10/27/20 10/27/20 History [Fish Oil] omeprazole 40 mg PO DAILY 10/27/20 10/27/20 History tamsulosin 0.4 mg PO HS 10/27/20 10/28/20 History Current Medications: Active Medications Allopurinol (Allopurinol 300 Mg Tablet) 300 mg PO DAILY@0800 [facility] Last Admin: 10/29/20 08:25 Dose: 300 mg Documented by: Allopurinol (Allopurinol 100 Mg Tablet) 100 mg PO 1700 [facility] Last Admin: 10/28/20 18:29 Dose: 100 mg Documented by: Amlodipine Besylate (Amlodipine Besylate 5 Mg Tablet) 5 mg PO BID [facility] Last Admin: 10/29/20 08:25 Dose: 5 mg Documented by: Aspirin (Aspirin 81 Mg Chewable Tablet) 81 mg PO [facility] Last Admin: 10/28/20 20:25 Dose: 81 mg Documented by: Atorvastatin Calcium (Atorvastatin 40 Mg Tablet) 40 mg PO [facility] Last Admin: 10/28/20 20:26 Dose: 40 mg Documented by: Atorvastatin Calcium (Atorvastatin 40 Mg Tablet) 40 mg PO DAILY [facility] Last Admin: 10/29/20 08:26 Dose: Not Given Documented by: Cyanocobalamin (Cyanocobalamin 1,000 Mcg Tablet) 1,000 mcg PO QAM [facility] Dextrose (Dextrose 50% 25 Gm/50 Ml Syringe) 12.5 gm IV PUSH PRN PRN; Protocol PRN Reason: Hypoglycemia Enoxaparin Sodium (Enoxaparin 80 Mg/0.8 Ml Syringe) 80 mg SUB-Q Q12H [facility] Last Admin: 10/29/20 05:28 Dose: 80 mg Documented by: Finasteride (Finasteride 5 Mg Tablet) 5 mg PO [facility] Last Admin: 10/28/20 20:28 Dose: 5 mg Documented by: Fish Oil ([place] 3 Polyunsat Fatty Acids 1 Gm Cap) 1 gm PO QAM [facility] Last Admin: 10/29/20 08:25 Dose: 1 gm Documented by: Gabapentin (Gabapentin 300 Mg Capsule) 900 mg PO [facility] Last Admin: 10/28/20 20:26 Dose: 900 mg Documented by: Gabapentin (Gabapentin 300 Mg Capsule) 300 mg PO DAILY [facility] Stop: 11/27/20 09:01 Last Admin: 10/29/20 08:25 Dose: 300 mg Documented by: Glucagon (Glucagon For Inj 1 Mg Vial) 1 mg IM PRN PRN; Protocol PRN Reason: Hypoglycemia Glucose (Glucose Oral Gel 15 Gm Of Glucse In 37.5 Gm Tube) 15 gm PO PRN PRN; Protocol PRN Reason: Hypoglycemia Hydralazine HCl (Hydralazine Hcl 20 Mg/Ml Vial) 10 mg IV PUSH Q8H PRN PRN Reason: Blood Pressure - High Dextrose (Dextrose 5% 1,000 Ml) 1,000 mls @ 100 mls/hr IVPB PRN PRN; Protocol PRN Reason: Hypoglycemia Insulin Aspart (Insulin Aspart (*Bkc) 100 Units/Ml) 2 - 5 units SUB-Q TIDWM [facility]; Protocol Last Admin: 10/29/20 11:45 Dose: Not Given Documented by: Insulin Glargine (Insulin Glargine (*Bkc) 100 Units/Ml) 14 units SUB-Q QPM [facility] Last Admin: 10/28/20 18:29 Dose: 14 units Documented by: Levothyroxine Sodium (Levothyroxine Sodium 150 Mcg Tablet) 150 mcg PO DAILY@0630 [facility] Last Admin: 10/29/20 05:28 Dose: 150 mcg Documented by: Metoprolol Succinate (Metoprolol Succinate Ext Rel 12.5 Mg Tabcr) [facility] Morphine Sulfate (Morphine Sulfate (*Crx) 2 Mg/Ml Inj) 2 mg IV PUSH Q4H PRN PRN Reason: Pain Rated 7-10 Pantoprazole Sodium (Pantoprazole 40 Mg Tablet) [facility] Last Admin: 10/29/20 08:24 Dose: 40 mg Documented by: Potassium Chloride (Potassium Chloride 20 Meq Tablet.Er) 20 meq PO DAILY@0800 [facility] Last Admin: 10/29/20 08:25 Dose: 20 meq Documented by: Tamsulosin HCl (Tamsulosin Hcl 0.4 Mg Capsule) 0.
--- NOTE | 2020-10-29 15:15 | PC.NURSE ---
Patient to cardiac cardiac cath lab manager via stretcher.
--- NOTE | 2020-10-29 16:05 | P.PCNCC_ITS ---
Cardiac Cath Procedure Note Date of procedure:: 10/29/20 Performing physician:: Percy Burnett MD Procedure: 1. Left heart catheterization, selective coronary angiogram. 2. Left ventricular pressure measurements 3. Conscious sedation. Grading Machine Operator: Dr. Percy Burnett Complications: None. Sedation: Conscious sedation, local anesthesia, using 1 mg of Versed said, 25 mcg of fentanyl, and using 1% lidocaine for local anesthesia. starting time is 3:36 p.m. ending time is 4:56 p.m. History: 80 years old gentleman with history of peripheral vascular disease history of dyslipidemia and history of smoking came to the hospital because of shortness of breath and hypertension noted to have significant shortness of breath and subsequently noted to have elevated troponin. After further stabilization and improvement of blood pressure he was brought to the labor relations specialist for elective cardiac catheterization for definitive diagnosis of coronary disease Technique: After informed consent was obtained from patient, was brought to the labor relations specialist, put in the labor relations specialist table, prepped and draped in usual sterile fashi on. Five [place] sheath was inserted into the right common femoral artery, through the sheath 5 [place] JL4 catheter inserted, advanced to the left coronary artery, left coronary artery angiogram was obtained. The catheter was exchanged over guidewire into a 5 [place] JR4 catheter, advanced to the right coronary artery, right coronary artery angiogram was obtained. The catheter then was exchanged over guidewire into this 5 [place] pigtail catheter, advanced to left ventricle, left ventricular angiogram was obtained. The catheter then was pulled, the sheath was pulled applying manual pressure for arterial hemostasis. Patient tolerated the procedure no complication, taken from the labor relations specialist to his room in stable condition stable vital signs. Hemodynamics: aortic pressure 123/60 . LV pressure 122/04 with LVEDP of 22 mmHg Angiographic findings: Left main: showed ostial and proximal 60% disease with calcified lesion and distally 75% disease Lad medium size artery showed proximal 90% calcified stenosis 1st diagonal branch with ostial 90% disease Left circumflex artery, medium size artery, with mid circumflex and 1st obtuse marginal 75% stenosis, seems to be giving collaterals to the right RCA: Dominant vessel, is totally occluded, with significant calcification seems to be getting collaterals from the left system LV: not done with angiogram but he has Normal size left ventricle with normal left ventricular systolic function on his echo Summary: left main coronary disease significant calcification and 3 vessel disease with totally occluded RCA Recommendation: would benefit from coronary bypass surgery COLBY to LAD saphenous venous graft to obtuse marginal diagonal branch and to distal RCA
--- NOTE | 2020-10-29 18:20 | SUR.PHASEII ---
REPORT CALLED TO RANJIT WHYTE RN IN IMU. PT. TO RETURN TO IMU 209 POST PHASE II RECOVERY. R. GROIN SITE REMAINS SOFT, NONTENDER. GAUZE AND TEGADERM DRESSING TO R. GROIN PUNCTURE SITE C/D/I. NO HEMATOMA OR BLEEDING NOTED. PRESSURE DRESSING OF GAUZE AND ELASTOPLAST TAPE COVERS SITE DRESSING. R. PEDAL PULSE STRONG. REPORTS HX OF NUMBNESS TO BILAT FEET DUE TO NEUROPATHY. R. FOOT WARM, DRY, PINK OTHERWISE. IVF'S RUNNING ORDERED. VSS. BEDREST X 6 HOURS UNTIL 2320. REVIEWED BEDREST ACTIVITY RESTRICTIONS W/ PT. AND SON. BOTH VOICED UNDERSTANDING. WILL MONITOR.
--- NOTE | 2020-10-29 18:30 | SUR.PHASEII ---
RETURNED TO IMU 209 VIA STRETCHER ON TELE MONITOR. NO NEW CHANGES. SON AT SIDE. BEDSIDE UPDATES GIVEN TO RANJIT Rodriguez RN AND OBSERVED R. GROIN SITE AND R. PEDAL PULSE TOGETHER WITH HER.
--- NOTE | 2020-10-29 18:41 | PC.NURSE ---
Patient returned to room following cardiac cath. Report received from ALEXANDER Richards.
[2020-10-29] MEDS: SODIUM CHLORIDE 0.9% IV 1,000 ML 125 ML IV CONT (18:50)
[2020-10-29 18:56] LABS: Glucose Point of Care 81 mg/dl (65-105)
[2020-10-29 20:05] LABS: Glucose Point of Care 110 mg/dl (65-105)
[2020-10-29] MEDS: allopurinoL 100 MG TABLET PO (20:26)
[2020-10-29] MEDS: ASPIRIN 81 MG CHEWABLE TABLET PO (20:26)
[2020-10-29] MEDS: ATORVASTATIN 40 MG TABLET PO (20:27)
[2020-10-29] MEDS: GABAPENTIN 300 MG CAPSULE 900 MG PO (21:00)
[2020-10-29] MEDS: TAMSULOSIN HCL 0.4 MG CAPSULE PO (21:00)
[2020-10-29] MEDS: FINASTERIDE 5 MG TABLET PO (21:00)
[2020-10-29] MEDS: hydrALAZINE HCL 20 MG/ML VIAL 10 MG IV PUSH (22:28)
[2020-10-30] VITALS (15 sets, daily range): BP systolic 152–179; BP diastolic 49–68; PULSE 66–103; RESP 14–22; TEMP 36.3–36.6; O2SAT 93–98
--- NOTE | 2020-10-30 02:08 | PC.NURSE ---
Mary from [facility] called at 0205 for patient condition update and most recent set of vitals. No bed available at this time. Patient to transfer to [facility] once a bed is available.
[2020-10-30 05:00] LABS: Hematocrit 40.5 % (42.0-52.0); Hemoglobin 13.1 g/dL (14.0-18.0); Immature Platelet Fraction Pct 6.2 % (0.9-11.2); Mean Corpuscular HGB Conc 32.3 g/dl (32-36); Mean Corpuscular Volume 92.9 fl (80-100); Mean Platelet Volume 11.1 fl (7.4-10.4); Platelet Count Result 126 k/mm3 (150-375); Red Blood Count 4.36 M/mm3 (4.6-6.20); Red Cell Distribution Width 14.1 % (11.5-14.5); White Blood Count 5.7 K/mm3 (4.5-10.0)
[2020-10-30 05:19] LABS: Alanine Aminotransferase 13 U/L (4-50); Albumin Level 3.3 g/dL (3.5-5.1); Alkaline Phosphatase 91 U/L (38-126); Anion Gap 4 mmol/L (8-16); Aspartate Amino Transferase 20 U/L (17-59); Bilirubin,Total 0.9 mg/dL (0.2-1.3); Blood Urea Nitrogen 18 mg/dL (9-20); Calcium 8.3 mg/dL (8.4-10.2); Carbon Dioxide 30 mmol/L (22-30); Chloride 103 mmol/L (98-107); Estimated CRCL calculation 36 ml/min; Estimated Glomerular Filt Rate 49; Glucose 126 mg/dL (75-110); Potassium 4.1 mmol/L (3.4-5.0); Sodium 137 mmol/L (137-145)
[2020-10-30] MEDS: LEVOTHYROXINE SODIUM 150 MCG TABLET PO (05:53)
[2020-10-30 07:32] LABS: Glucose Point of Care 134 mg/dl (65-105)
[2020-10-30] MEDS: POTASSIUM CHLORIDE 20 MEQ TABLET.ER PO (08:05)
[2020-10-30] MEDS: OMEGA 3 POLYUNSAT FATTY ACIDS 1 GM CAP PO (08:06)
[2020-10-30] MEDS: METOPROLOL SUCCINATE EXT REL 12.5 MG TABCR PO (08:06)
[2020-10-30] MEDS: CYANOCOBALAMIN 1,000 MCG TABLET 1000 MCG PO (08:06)
[2020-10-30] MEDS: PANTOPRAZOLE 40 MG TABLET PO (08:06)
[2020-10-30] MEDS: amLODIPine BESYLATE 5 MG TABLET PO ×2 (08:07→16:18)
[2020-10-30] MEDS: GABAPENTIN 300 MG CAPSULE PO (08:07)
[2020-10-30] MEDS: ATORVASTATIN 40 MG TABLET PO ×2 (08:07→21:04)
[2020-10-30 08:39] LABS: INR 0.9; Prothrombin Time 13.1 Seconds (11.1-14.7)
[2020-10-30] MEDS: polyethylene glycoL 3350 17 GM POWD.PACK PO (09:14)
[2020-10-30] MEDS: HEPARIN SOD/D5W 100 UNITS/ML 25,000 UNITS/250 ML BAG 9 UNITS IV CONT (09:15)
--- NOTE | 2020-10-30 09:19 | PM.PNCARD ---
Progress Note: A&P Assessment and Plan (1) Non-ST elevation [place] (NSTEMI): Code(s): I21.4 - Non-ST elevation (NSTEMI) myocardial infarction Status: Acute Assessment and Plan: 80 y/o male with no known cardiac history however extensive cardiovascular risk factors including HTN, DM, HLD,CKD, ex smoker as well as strong family history of early onset CAD who presents with left arm pain, HTN emergency and ruled in for VT Trop peaked at 3.7 s/p C that revealed 3 vessel disease (LM ostial 60% stenosis, LAD and Diag 90% , LCx 75% stenosis, RCA totally occluded Arrangements being made to transfer to [place] for CABG Will resume AC. Was on Lovenox prior to cath. Will start IV heparin Continue ASA. He was never loaded with any second antiplatelet agents Continue Atorvastatin. LDL is 66. Started Metoprolol 12.5 mg (2) Hypertension, uncontrolled: Code(s): I10 - Essential (primary) hypertension Status: Chronic Assessment and Plan: 230/100 on admission. Now down to 150s/80. Metoprolol started. Hold Lisinopril with recent JENNIFFER and planned CABG (3) DM2 (diabetes mellitus, type 2): Code(s): E11.9 - Type 2 diabetes mellitus without complications Status: Chronic Assessment and Plan: HgA1c 7.4 Subjective Date/time seen: 10/30/20 09:19 Toelrated cath well which revealed three vessel disease including left main No recurrence of chest pain Admits to dyspnea but improved compared to admission Review of Systems Review of Systems: All systems reviewed & are unremarkable except as noted in HPI and below Constitutional: Constitutional: Denies fatigue and Denies headache(s) Eyes: Eyes: Denies blurry vision ENT: Reports Normal hearing present and Denies headache(s) Cardiovascular: Cardiovascular: Denies chest pain, Denies diaphoresis, Denies pedal edema, Denies leg edema, Denies lightheadedness, Denies palpitations and Denies dyspnea Respiratory: Respiratory: Denies cough and Denies dyspnea Gastrointestinal: Gastrointestinal: Denies abdominal pain Musculoskeletal: Musculoskeletal: Denies back pain Neurologic: Reports Normal hearing present and Denies headache(s) Psychiatric: Psychiatric: Denies anxiety Endocrine: Endocrine: Denies fatigue and Denies palpitations Exam Const: General: no acute distress Eyes: Sclera: sclerae normal Neck: Neck: no JVD Carotids: no bruits Resp: Effort & Inspection: normal respiratory effort Auscultation: clear to auscultation bilaterally Cardio: Jugular venous distension: no JVD Rate: regular rate and not tachycardic Rhythm: regular rhythm Heart sounds: S1 normal heart sound present, S2 normal heart sound present, no gallops, no murmurs and no rubs Peripheral pulses: Peripheral pulses 2+ throughout Skin: General skin exam: normal color Neuro: Cranial nerves: Yes Normal hearing present Speech: normal speech Extrem: General: normal to inspection and no edema Psych: Affect: normal affect Objective Data Vital Signs Vital Signs: Vital Signs - 24 hr 10/29/20 10:00 10/29/20 12:00 10/29/20 12:41 Temperature 35.9 C L Pulse Rate 60 56 L 58 L Pulse Rate [Bilateral Pedal (Dorsalis Pedis) Palpation] Respiratory Rate 20 Blood Pressure 151/56 H Pulse Oximetry 100 10/29/20 14:00 10/29/20 16:15 10/29/20 16:30 Temperature Pulse Rate 61 60 61 Pulse Rate [Bilateral Pedal (Dorsalis Pedis) Palpation] 60 Respiratory Rate 18 20 Blood Pressure 154/74 H 164/78 H Pulse Oximetry 100 100 10/29/20 16:40 10/29/20 16:50 10/29/20 17:00 Temperature Pulse Rate 62 61 62 Pulse Rate [Bilateral Pedal (Dorsalis Pedis) Palpation] 63 63 Respiratory Rate 20 17 17 Blood Pressure 168/71 H 169/70 H 170/71 H Pulse Oximetry 100 100 100 10/29/20 17:10 10/29/20 17:20 10/29/20 17:30 Temperature Pulse Rate 65 65 65 Pulse Rate [Bilateral Pedal (Dorsalis Pedis) Palpation] 63 63 63 Respiratory Rate 20 20 20 Bl
[2020-10-30] MEDS: allopurinoL 300 MG TABLET PO (11:10)
[2020-10-30 12:29] LABS: Glucose Point of Care 173 mg/dl (65-105)
[2020-10-30 15:25] LABS: Partial Thromboplastin Time 41.7 SECONDS (22.3-36.8)
--- NOTE | 2020-10-30 15:27 | PM.PNNEP ---
Progress Note: A&P Assessment and Plan (1) JENNIFFER (acute kidney injury): Code(s): N17.9 - Acute kidney failure, unspecified Status: Acute Assessment and Plan: etiology unclear (but back to baseline?) due to cardiac event/NSTEMI in of itself(?) did apparently have a CT scan with contrast about a week ago...contributing factor? fluctuating BP readings? agree with holding ANN-I for now follow trend of repeat labs and UOP (2) Stage 3a chronic kidney disease: Code(s): N18.31 - Chronic kidney disease, stage 3a Status: Chronic Assessment and Plan: follow with Dr. Ellis at [facility] baseline creatinine runs around 1.3 - 1.5mg/dl in the last year due to HTN, diabetes, vascular disease, and age-related change (3) Non-ST elevation [place] (NSTEMI): Code(s): I21.4 - Non-ST elevation (NSTEMI) myocardial infarction Status: Acute Assessment and Plan: as noted by evaluation on admission Cardiology following s/p cardiac cath yesterday at risk for contrast nephropathy - noted to have 3 vessel disease - likely to need CABG -- awaiting transfer to [place] continue medical management (4) Hypertension, uncontrolled: Code(s): I10 - Essential (primary) hypertension Status: Chronic Assessment and Plan: quite elevated on admission better at this time left NISHA noted by renal duplex -- consider intervention at a later date if BP fails to respond to conservative therapy would try to avoid overcontrol of BP for fear this may result in renal hypoperfusion and worsen renal function follow trend of hemodynamics (5) DM2 (diabetes mellitus, type 2): Code(s): E11.9 - Type 2 diabetes mellitus without complications Status: Chronic Assessment and Plan: follow accuchecks glycemic control Will continue to follow. Subjective Date/time seen: 10/30/20 15:27 Tolerated cardiac catheterization yesterday with results noted; awaiting transfer to [facility] for likely CABG given 3 vessel disease as noted on cardiac catheterization; no complaints of chest pain or shortness of breath; no issues or events overnight or earlier this AM. Exam Narrative: Exam Narrative: General: WD/WN male in NAD Heart: normal S1 and S2; no rub Lungs: clear to auscultation Abdomen: soft, nontender, nondistended, positive bowel sounds Extremities: no cyanosis or clubbing; no edema Skin: warm and intact Objective Data Vital Signs Vital Signs: Vital Signs Temp Pulse Pulse Resp BP Pulse Ox 10/30/20 14:00 70 10/30/20 12:00 36.4 C 73 16 179/59 H 98 10/30/20 10:00 73 10/30/20 08:06 89 10/30/20 08:00 36.4 C 83 16 156/68 H 98 10/30/20 06:00 103 H 10/30/20 04:00 36.4 C L 76 18 164/49 H 97 10/30/20 02:00 76 10/30/20 00:00 69 10/29/20 23:15 36.3 C L 68 18 186/74 H 92 10/29/20 22:15 36.1 C L 70 16 202/74 H 92 10/29/20 22:00 75 10/29/20 21:28 93 10/29/20 21:15 36.3 C L 65 16 192/63 H 96 10/29/20 20:14 36.4 C 72 20 179/79 H 92 10/29/20 20:00 67 10/29/20 19:16 36.1 C L 68 16 165/81 H 96 10/29/20 18:55 35.9 C L 65 17 174/63 H 94 10/29/20 18:15 60 16 169/68 H 96 10/29/20 18:00 61 16 172/71 H 99 10/29/20 17:45 64 18 180/78 H 98 10/29/20 17:30 65 63 20 172/70 H 96 10/29/20 17:20 65 63 20 172/72 H 96 10/29/20 17:10 65 63 20 174/73 H 96 10/29/20 17:00 62 63 17 170/71 H 100 10/29/20 16:50 61 63 17 169/70 H 100 10/29/20 16:40 62 20 168/71 H 100 10/29/20 16:30 61 20 164/78 H 100 Intake/Output Intake/Output: Intake & Output 10/27/20 10/28/20 10/29/20 10/30/20 23:59 23:59 23:59 23:59 Intake Total 2190 460 2150 Output Total 2075 1450 1100 Balance 115 -990 1050 Meds/Results Medications: Active Medications Generic Name Dose Route Start Last Admin
--- NOTE | 2020-10-30 15:27 | P.PNNP_ITS ---
Progress Note: A&P Assessment and Plan (1) JENNIFFER (acute kidney injury): Code(s): N17.9 - Acute kidney failure, unspecified Status: Acute Assessment and Plan: * etiology unclear (but back to baseline?) * due to cardiac event/NSTEMI in of itself(?) * did apparently have a CT scan with contrast about a week ago...contributing factor? * fluctuating BP readings? * agree with holding ANN-I for now * follow trend of repeat labs and UOP (2) Stage 3a chronic kidney disease: Code(s): N18.31 - Chronic kidney disease, stage 3a Status: Chronic Assessment and Plan: * follow with Dr. Ellis at [facility] * baseline creatinine runs around 1.3 - 1.5mg/dl in the last year * due to HTN, diabetes, vascular disease, and age-related change (3) Non-ST elevation [place] (NSTEMI): Code(s): I21.4 - Non-ST elevation (NSTEMI) myocardial infarction Status: Acute Assessment and Plan: * as noted by evaluation on admission * Cardiology following * s/p cardiac cath yesterday * at risk for contrast nephropathy - noted to have 3 vessel disease - likely to need CABG -- awaiting transfer to [place] * continue medical management (4) Hypertension, uncontrolled: Code(s): I10 - Essential (primary) hypertension Status: Chronic Assessment and Plan: * quite elevated on admission * better at this time * left NISHA noted by renal duplex -- consider intervention at a later date if BP fails to respond to conservative therapy * would try to avoid overcontrol of BP for fear this may result in renal hypoperfusion and worsen renal function * follow trend of hemodynamics (5) DM2 (diabetes mellitus, type 2): Code(s): E11.9 - Type 2 diabetes mellitus without complications Status: Chronic Assessment and Plan: * follow accuchecks * glycemic control Will continue to follow. Subjective Date/time seen: 10/30/20 15:27 Tolerated cardiac catheterization yesterday with results noted; awaiting transfer to [facility] for likely CABG given 3 vessel disease as noted on cardiac catheterization; no complaints of chest pain or shortness of breath; no issues or events overnight or earlier this AM. Exam Narrative: Exam Narrative: General: WD/WN male in NAD Heart: normal S1 and S2; no rub Lungs: clear to auscultation Abdomen: soft, nontender, nondistended, positive bowel sounds Extremities: no cyanosis or clubbing; no edema Skin: warm and intact Objective Data Vital Signs Vital Signs: Vital Signs Temp Pulse Pulse Resp BP Pulse Ox 10/30/20 14:00 70 10/30/20 12:00 36.4 C 73 16 179/59 H 98 10/30/20 10:00 73 10/30/20 08:06 89 10/30/20 08:00 36.4 C 83 16 156/68 H 98 10/30/20 06:00 103 H 10/30/20 04:00 36.4 C L 76 18 164/49 H 97 10/30/20 02:00 76 10/30/20 00:00 69 10/29/20 23:15 36.3 C L 68 18 186/74 H 92 10/29/20 22:15 36.1 C L 70 16 202/74 H 92 10/29/20 22:00 75 10/29/20 21:28 93 10/29/20 21:15 36.3 C L 65 16 192/63 H 96 10/29/20 20:14 36.4 C 72 20 179/79 H 92 10/29/20 20:00 67 10/29/20 19:16 36.1 C L 68 16 165/81 H 96 10/29/20 18:55 35.9 C L 65 17 174/63 H 94 10/29/20 18:15 60 16 169/68 H 96 10/29/20 18
[2020-10-30] MEDS: HEPARIN SODIUM 5,000 UNITS/ML VIAL 4000 UNITS IV PUSH (15:39)
--- NOTE | 2020-10-30 15:49 | PM.IMPN ---
Progress Note: A&P Assessment and Plan (1) Non-ST elevation [place] (NSTEMI): Code(s): I21.4 - Non-ST elevation (NSTEMI) myocardial infarction Status: Acute Assessment and Plan: -troponins elevated last being 3.240 but patient is now asymptomatic -echo reviewed by Cardiology he reports a normal EF with no significant valvular disease -chest x-ray clear, appears euvolemic. EKG reviewed with some mild T-wave abnormalities in the lateral leads. -cath showed left main disease with 3 vessel disease. Awaiting transfer to [facility] -continue with heparin. -Continue atorvastatin and metoprolol. 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 He is at the [place] -creatinine this morning was improved to 1.4. Pt had a CT with dye last week according to him, could be a factor -records from [place] shows Cr 1.3 on 10/17/20 but up to 1.49 in 2019 -Pt sees Dr. Ellis at the [place] -U/s shows mod/severe left sided NISHA. Monitor Cr closely if he goes back on lisinopril -Pt had significantly elevated bp on admission -nephrology consult (3) DM2 (diabetes mellitus, type 2): Code(s): E11.9 - Type 2 diabetes mellitus without complications Status: Chronic Assessment and Plan: Last glucose 173 -metformin held -continue sliding scale insulin and diabetic diet -last A1c 7.4 (4) Hypertension, uncontrolled: Code(s): I10 - Essential (primary) hypertension Status: Chronic Assessment and Plan: Blood pressure was 179/59 but was elevated further on admission up to 234/96 -lisinopril held due to JENNIFFER -continue amlodipine and now metoprolol -continue hydralazine for systolic greater than 175 (5) Hypokalemia: Code(s): E87.6 - Hypokalemia Status: Acute Assessment and Plan: Resolved (6) BPH (benign prostatic hyperplasia): Code(s): N40.0 - Benign prostatic hyperplasia without lower urinary tract symptoms Status: Chronic Assessment and Plan: Continue with finasteride (7) Hyperlipidemia: Code(s): E78.5 - Hyperlipidemia, unspecified Status: Chronic Assessment and Plan: Continue with simvastatin (8) Gout: Code(s): M10.9 - Gout, unspecified Status: Chronic Assessment and Plan: Continue with allopurinol -no acute symptoms (9) Hypothyroidism: Code(s): E03.9 - Hypothyroidism, unspecified Status: Chronic Assessment and Plan: Continue with levothyroxine -TSH mildly high, re-check in 6 weeks after acute illness has resolved (10) Diabetic neuropathy: Code(s): E11.40 - Type 2 diabetes mellitus with diabetic neuropathy, unspecified Status: Chronic Assessment and Plan: Continue with gabapentin (11) Chronic GERD: Code(s): K21.9 - Gastro-esophageal reflux disease without esophagitis Status: Chronic Assessment and Plan: No acute symptoms, continue with omeprazole (12) Pancytopenia: Code(s): D61.818 - Other pancytopenia Status: Acute Assessment and Plan: Mild, Noted on labs and noted on his [facility] labs in the past as well -Pt b12 is low, will replenish -monitor platelets while on heparin -no signs of viral illness -may need to follow-up with hematology (13) Emphysema lung: Code(s): J43.9 - Emphysema, unspecified Status: Acute Assessment and Plan: Noted on CT -no history of this -patient will need outpatient PFTs, I spoke with him about this -he will be prescribed albuterol p.r.n. outpatient Subjective Date/time seen: 10/30/20 15:49 Interval history: Pt is a 80-year-old male here for left arm pain.
[2020-10-30] MEDS: hydrALAZINE HCL 20 MG/ML VIAL 10 MG IV PUSH (16:17)
[2020-10-30] MEDS: allopurinoL 100 MG TABLET PO (16:19)
[2020-10-30 17:10] LABS: Glucose Point of Care 152 mg/dl (65-105)
[2020-10-30] MEDS: INSULIN GLARGINE (*BKC) 100 UNITS/ML 14 UNITS SUB-Q ×2 (18:39→21:00)
[2020-10-30 20:15] LABS: Glucose Point of Care 163 mg/dl (65-105)
--- NOTE | 2020-10-30 20:31 | PC.NURSE ---
Call from SANTINO Howard with [facility] at 2024 p.m. Current patient status and most recent set of vitals discussed. History and physical, most recent cardiology note, and copy of catheterization procedure to be faxed over to [facility]. Patient to transfer to [place] once a bed is available.
[2020-10-30] MEDS: FINASTERIDE 5 MG TABLET PO (21:02)
[2020-10-30] MEDS: ASPIRIN 81 MG CHEWABLE TABLET PO (21:03)
[2020-10-30] MEDS: GABAPENTIN 300 MG CAPSULE 900 MG PO (21:03)
[2020-10-30] MEDS: SENNA/DOCUSATE SODIUM TABLET 1 TAB PO (21:04)
[2020-10-30] MEDS: TAMSULOSIN HCL 0.4 MG CAPSULE PO (21:04)
[2020-10-30 21:52] LABS: Partial Thromboplastin Time 101.3 SECONDS (22.3-36.8)
[2020-10-31] VITALS: PULSE 67
--- NOTE | 2020-10-31 01:50 | PC.NURSE ---
Kinza with [facility] called for patient status update and current set of vitals at 0145. No bed available at this time. Patient to transfer once bed is available.
[2020-10-31 02:00] VITALS: PULSE 66
[2020-10-31 03:39] VITALS: BP 154/58; PULSE 72; RESP 16; TEMP 36.5; O2SAT 96
[2020-10-31 04:00] VITALS: PULSE 64
[2020-10-31 05:03] LABS: Basophils Percent Auto 0.2 % (0.2-1.2); Eosinophils Absolute Auto 0.1 K/mm3 (0-0.3); Hematocrit 37.6 % (42.0-52.0); Immature Granulocyte Absolute 0.02 K/mm3 (0.00-0.031); Immature Granulocyte Percent A 0.5 % (0-0.5); Immature Platelet Fraction Pct 6.2 % (0.9-11.2); Lymphocytes Percent Auto 16.3 % (18.3-44.2); Mean Corpuscular HGB Conc 31.9 g/dl (32-36); Mean Corpuscular Hemoglobin 29.8 pg (26-34); Mean Corpuscular Volume 93.3 fl (80-100); Mean Platelet Volume 11.3 fl (7.4-10.4); Monocytes Absolute Auto 0.4 K/mm3 (0.1-0.6); Monocytes Percent Auto 8.8 % (2.6-8.5); Neutrophils Absolute Auto 3.1 K/mm3 (1.3-6.7); Neutrophils Percent Auto 71.2 % (45.5-73.1); Platelet Count Result 129 k/mm3 (150-375); Red Blood Count 4.03 M/mm3 (4.6-6.20); Red Cell Distribution Width 14.3 % (11.5-14.5); White Blood Count 4.3 K/mm3 (4.5-10.0)
[2020-10-31 05:08] LABS: Partial Thromboplastin Time 106.8 SECONDS (22.3-36.8)
[2020-10-31 05:16] LABS: Anion Gap 4 mmol/L (8-16); Blood Urea Nitrogen 20 mg/dL (9-20); Calcium 8.8 mg/dL (8.4-10.2); Carbon Dioxide 31 mmol/L (22-30); Chloride 104 mmol/L (98-107); Estimated CRCL calculation 36 ml/min; Estimated Glomerular Filt Rate 49; Glucose 96 mg/dL (75-110); Potassium 4.4 mmol/L (3.4-5.0); Sodium 139 mmol/L (137-145)
[2020-10-31 06:00] VITALS: PULSE 100
[2020-10-31] MEDS: HEPARIN SOD/D5W 100 UNITS/ML 25,000 UNITS/250 ML BAG 10 UNITS IV CONT (06:11)
[2020-10-31] MEDS: LEVOTHYROXINE SODIUM 150 MCG TABLET PO (06:13)
--- NOTE | 2020-10-31 06:26 | PC.NURSE ---
Call from [facility] at 0620 to confirm bed availability for this patient. Bed is now available. Patient to transfer to room [facility]. Contact number for [facility] is [phone]. Called [facility] at 0630 to give report. Report given to ALEXANEDR Larson with [facility].
--- NOTE | 2020-10-31 07:12 | PC.NURSE ---
[facility] arrived at 0700 for patient transport to [facility]. Patient was discharged at 0712 by EMS and in route to [facility]. [facility] facility called and made aware of patient status to facility.
--- NOTE | 2020-10-31 07:30 | PM.TDS ---
Transfer Discharge Sum: Prov Provider Date of admission: 10/28/20 09:04 Primary care physician: [facility] Admitting clinician: Angeles Braga MD Consults: 10/27/20 17:27 Consult to Physician Routine Comment: Consulting Provider: Percy Burnett Reason for consultation: NSTEMI Has provider been notified: Yes 10/28/20 Consult to Physician Routine Comment: CALLED OFFICE WITH CONSULT INFORMATION Consulting Provider: Augustin Samuels call specialist/MD group to consult: nephrology Reason for consultation: jenniffer, needs cath Has provider been notified: Yes Attending physician on discharge: Trey Fields Discharging clinician: Luz Zepeda Receiving physician/facility: [facility], unknown accepting physician DS: Admitting Diagnosis Admitting Diagnosis Admitting Diagnosis: arm pain, suspected ACS DS: Discharge Diagnosis Discharge Diagnosis (1) Non-ST elevation [place] (NSTEMI): Code(s): I21.4 - Non-ST elevation (NSTEMI) myocardial infarction Status: Acute Assessment and Plan: -troponins elevated last being 3.240 but patient is now asymptomatic -echo reviewed by Cardiology he reports a normal EF with no significant valvular disease -chest x-ray clear, appears euvolemic. EKG reviewed with some mild T-wave abnormalities in the lateral leads. -cath showed left main disease with 3 vessel disease. Transfer to [facility]. -Pt was on heparin while he was awaiting a bed. -Continue atorvastatin and metoprolol. 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 [place] is at [place] -creatinine this morning was improved to 1.4. Pt had a CT with dye last week according to him, could be a factor -records from [place] shows Cr 1.3 on 10/17/20 but up to 1.49 in 2019 -Pt sees Dr. Ellis at the [place] -U/s shows mod/severe left sided NISHA. Monitor Cr closely if he goes back on lisinopril -Pt had significantly elevated bp on admission -nephrology consulted while here (3) DM2 (diabetes mellitus, type 2): Code(s): E11.9 - Type 2 diabetes mellitus without complications Status: Chronic Assessment and Plan: Last glucose 96 -metformin held -continue sliding scale insulin and diabetic diet -last A1c 7.4 (4) Hypertension, uncontrolled: Code(s): I10 - Essential (primary) hypertension Status: Chronic Assessment and Plan: Blood pressure was 154/58 but was elevated further on admission up to 234/96 -lisinopril held due to JENNIFFER -continue amlodipine and now metoprolol -hydralazine for bp >170 was used (5) Hypokalemia: Code(s): E87.6 - Hypokalemia Status: Acute Assessment and Plan: Resolved (6) BPH (benign prostatic hyperplasia): Code(s): N40.0 - Benign prostatic hyperplasia without lower urinary tract symptoms Status: Chronic Assessment and Plan: Continue with finasteride (7) Hyperlipidemia: Code(s): E78.5 - Hyperlipidemia, unspecified Status: Chronic Assessment and Plan: Continue with simvastatin (8) Gout: Code(s): M10.9 - Gout, unspecified Status: Chronic Assessment and Plan: Continue with allopurinol -no acute symptoms (9) Hypothyroidism: Code(s): E03.9 - Hypothyroidism, unspecified Status: Chronic Assessment and Plan: Continue with levothyroxine -TSH mildly high, re-check in 6 weeks after acute illness has resolved (10) Diabetic neuropathy: Code(s): E11.40 - Type 2 diabetes mellitus with diabetic neuropathy, unspecified Status: Chronic Assessment and Plan: Continue with gabapentin (11) Chronic GERD: Code(s): K21.9 - Gastro-esophag
== END 2020-10-31 07:12 | disposition short-term general hospital (02) | DRG 281 ==
LOC: ANHED 17:56 → ANHIMU 18:04
PROVIDERS: Nurse Practitioner; Physician Assistant; Specialist; Admitting Provider Family Medicine; Emergency Provider Emergency Medicine; Visit Provider Family Medicine
PROC: 4A023N7 Measurement of Cardiac Sampling and Pressure, Left Heart, Percutaneous Approach (ICD-10-PCS; CPT 93452; principal; 2020-10-29 14:00)
DX: I21.4 Non-ST elevation (NSTEMI) myocardial infarction (principal); N17.9 Acute kidney failure, unspecified; D61.818 Other pancytopenia; E11.40 Type 2 diabetes mellitus with diabetic neuropathy, unspecified; E78.5 Hyperlipidemia, unspecified; K21.9 Gastro-esophageal reflux disease without esophagitis; E03.9 Hypothyroidism, unspecified; E87.6 Hypokalemia; I12.9 Hypertensive chronic kidney disease with stage 1 through stage 4 chronic kidney disease, or unspecified chronic kidney disease; E11.22 Type 2 diabetes mellitus with diabetic chronic kidney disease; N18.31 Chronic kidney disease, stage 3a; M10.9 Gout, unspecified; Z87.891 Personal history of nicotine dependence; J43.9 Emphysema, unspecified
CPT/HCPCS: 36415; 71045; 80048; 80053; 80061; 80076; 81001; 82607; 82728; 82746; 82948; 83036; 83540; 83550; 83735; 83880; 84439; 84443; 84466; 84480; 84484; 85014; 85018; 85025; 85027; 85055; 85610; 85730; 93005; 93306; 93458; 93976; 96372; 96374; 96375; 99291; A9270; C1887; C1894; G0378; J0360; J0461; J1644; J1650; J1815; J2250; J2405; J3010; J3420; J7030; J7040

== ENCOUNTER 2020-11-13 11:45 | IRF | payer MEDICARE, OTHER, SELFPAY ==
--- NOTE | 2020-11-13 12:18 | ADMGEN ---
This patient, Anuel Amos, was admitted to [facility] Room 220-02. Patient/family oriented to hospital policies and general routines including ID bracelet, bed and alarms, visiting hours, pain management, procedures, bathroom and other care routines, personal items, smoking policy, room service/diet, and visiting hours. Information on how to activate the Rapid Response Team has been discussed. Patient/Family are encouraged to report perceived risks to care and to ask questions if they do not understand what they are told or what they should do.
[2020-11-13 12:28] VITALS: BP 160/53; PULSE 73; RESP 18; TEMP 36.2; O2SAT 95; BMI 25.2
--- NOTE | 2020-11-13 14:44 | WPDREHABHP ---
H&P: HPI History of Present Illness Date/Time: 11/13/20 14:44 Chief Complaint: status post CABG with postop TIA/CVA Narrative: HISTORY OF PRESENT ILLNESS: The patient's primary rehab impairment category is 14 cardiac The etiologic diagnosis is coronary artery disease I saw this patient [id number] on 11/13/2020 The patient is a 80-year-old male with history of GERD, BPH, hypothyroidism, status post thyroidectomy, hyperlipidemia, hypertension, emphysema, peripheral vascular disease, status post aortofemoral bypass, carotid stenosis status post endarterectomy, gout, diabetes mellitus, diabetic neuropathy, history of tobacco use, chronic renal failure stage 3, pancytopenia, vitamin B12 deficiency, bladder cancer with chemotherapy with resolution, coronary artery disease. Patient presented to [facility] on 10/27/2020 with complaints of intermittent chest pain. EKG showed bradycardia with T-wave elevation. Blood pressure 207/122. Troponin levels were elevated at 3.78. Patient underwent cardiac catheterization which showed ostial and proximal left main 60% disease with calcified lesions and distal 75% disease. LAD showed proximal 90% calcified stenosis, 1st diagonal branch and 90% ostial stenosis. Left circumflex shows 75% stenosis of mid circumflex and 1st obtuse marginal. RCA show total occlusion with collaterals from the left system. Echo showed normal left ventricular systolic function with ejection fraction of 50%, moderate aortic valve sclerosis with restricted leaflet movement. This did not show aortic stenosis. Mild mitral valve regurgitation. Dilated inferior vena cava with left than 50% collapse on inspiration consistent with elevated right atrial pressure. Renal artery ultrasound showed moderate to severe left-sided renal artery stenosis. Patient was transferred to [facility] on 10/31/2020 for consideration of coronary artery surgery. The patient was placed on a heparin drip for NSTEMI and coronary artery disease including left main. Cardiothoracic surgeon,Dale Gleason, performed a CABG on 11/07/2020. Postop: patient was noted to have hyperkalemia, hyponatremia, acute postop pain, acute blood loss anemia, hyperglycemia. On 11/10/2020 patient had right-sided weakness. Neurology was consulted Dr. Niki Quinn MD. Head CT scan showed subacute/chronic infarcts. MRI /MRA was not able to be performed secondary to external pacer site. Neurology place the patient on aspirin Atrovent statin and Plavix. Patient's symptoms resolved. Sternal incision initially had a Provena wound VAC which was discontinued on 11/12/2020 .Pacer wires were were cut and not removed due to pancytopenia and risk of tamponade. Patient will be scheduled for interventional Radiology stenting at a later date. Patient was placed on a regular diet due to hyponatremia. the patient has been vaccinated for COVID-19 and also tested negative for COVID. Patient has not traveled outside the [place] nor has been exposed to anyone who has been outside the [place] or with any active Coronavirus. Patient presents with no symptoms of COVID. Therapy was initiated at the acute care facility and the patient transferred to us from [facility] on 11/13/2020 FALLS OR SURGERIES: the patient has had major surgery during this hospital stay. He has not had any falls in the past 6 months. The patient has had [no] major surgeries in the 100 days prior to admission. They had [no] falls in the past year. They had [no] falls with injury in the past year. PRIOR LEVEL OF FUNCTION: Eating was [INDEPENDENT] Oral Care was [INDEPENDENT] Toileting Hygiene was [INDEPENDENT] Shower/Bathing was [INDEPENDENT] Upper Body Dressing was [INDEPENDENT] Lower Body Dressing was [INDEPENDENT] Donning/[place] Footwear was [INDEPENDENT] Rolling Left and Right was [INDEPENDENT] Sit to Lying was [INDEPENDENT] Lying to Sitting was [INDEPENDENT] Sit to Stand was
[2020-11-13 16:16] LABS: Glucose Point of Care 172 mg/dl (65-105)
[2020-11-13 17:02] LABS: Glucose Point of Care 220 mg/dl (65-105)
[2020-11-13 17:37] VITALS: PULSE 70
[2020-11-13] MEDS: INSULIN ASPART (*BKC) 100 UNITS/ML 6 UNITS SUB-Q (17:37)
[2020-11-13] MEDS: carvediloL 12.5 MG TABLET PO (17:37)
[2020-11-13] MEDS: INSULIN ASPART (*BKC) 100 UNITS/ML SUB-Q (17:37)
[2020-11-13 20:33] LABS: Glucose Point of Care 98 mg/dl (65-105)
[2020-11-13] MEDS: INSULIN GLARGINE (*BKC) 100 UNITS/ML 7 UNITS SUB-Q (20:38)
[2020-11-13] MEDS: DOCUSATE SODIUM 100 MG CAPSULE PO (20:40)
[2020-11-13] MEDS: MELATONIN 3 MG TABLET PO (20:41)
[2020-11-13] MEDS: GABAPENTIN 300 MG CAPSULE 900 MG PO (20:41)
[2020-11-13] MEDS: ATORVASTATIN 40 MG TABLET 80 MG PO (20:42)
[2020-11-13] MEDS: SENNOSIDES 8.6 MG TABLET PO (20:42)
[2020-11-13] MEDS: FINASTERIDE 5 MG TABLET PO (20:44)
[2020-11-13] MEDS: ACETAMINOPHEN 500 MG TABLET 1000 MG PO (20:50)
[2020-11-13 21:22] VITALS: BP 151/59; PULSE 78; RESP 16; TEMP 36; O2SAT 95
[2020-11-13] MEDS: HEPARIN SODIUM 5,000 UNITS/ML VIAL 5000 UNITS SUB-Q (21:31)
[2020-11-13] MEDS: CYCLOBENZAPRINE HCL 10 MG TABLET PO (22:13)
[2020-11-14] VITALS (7 sets, daily range): BP systolic 151–158; BP diastolic 56–70; PULSE 69–81; RESP 16–20; TEMP 36.2–36.5; O2SAT 97–100; BMI 25.2
[2020-11-14 05:11] LABS: Basophils Percent Auto 0.5 % (0.2-1.2); Eosinophils Absolute Auto 0.2 K/mm3 (0-0.3); Eosinophils Percent Auto 3.8 % (0-4.4); Hematocrit 33.3 % (42.0-52.0); Hemoglobin 11.1 g/dL (14.0-18.0); Immature Granulocyte Absolute 0.09 K/mm3 (0.00-0.031); Immature Granulocyte Percent A 1.5 % (0-0.5); Lymphocytes Absolute Auto 0.76 K/mm3 (0.9-3.2); Lymphocytes Percent Auto 13.1 % (18.3-44.2); Mean Corpuscular HGB Conc 33.3 g/dl (32-36); Mean Corpuscular Hemoglobin 29.5 pg (26-34); Mean Corpuscular Volume 88.6 fl (80-100); Mean Platelet Volume 10.2 fl (7.4-10.4); Monocytes Absolute Auto 0.6 K/mm3 (0.1-0.6); Monocytes Percent Auto 9.5 % (2.6-8.5); Neutrophils Absolute Auto 4.2 K/mm3 (1.3-6.7); Neutrophils Percent Auto 71.6 % (45.5-73.1); Platelet Count Result 163 k/mm3 (150-375); Red Blood Count 3.76 M/mm3 (4.6-6.20); Red Cell Distribution Width 14.8 % (11.5-14.5); White Blood Count 5.8 K/mm3 (4.5-10.0)
[2020-11-14 05:25] LABS: Potassium 5.1 mmol/L (3.4-5.0)
[2020-11-14 05:31] LABS: Alanine Aminotransferase 35 U/L (4-50); Albumin Level 3.2 g/dL (3.5-5.1); Alkaline Phosphatase 80 U/L (38-126); Anion Gap 6 mmol/L (8-16); Aspartate Amino Transferase 29 U/L (17-59); Bilirubin,Total 0.7 mg/dL (0.2-1.3); Blood Urea Nitrogen 32 mg/dL (9-20); Calcium 8.7 mg/dL (8.4-10.2); Carbon Dioxide 29 mmol/L (22-30); Chloride 98 mmol/L (98-107); Estimated CRCL calculation 36 ml/min; Estimated Glomerular Filt Rate 49; Glucose 118 mg/dL (75-110); Sodium 133 mmol/L (137-145)
[2020-11-14] MEDS: ACETAMINOPHEN 500 MG TABLET 1000 MG PO ×2 (05:47→12:08)
[2020-11-14] MEDS: LEVOTHYROXINE SODIUM 150 MCG TABLET PO (05:48)
[2020-11-14] MEDS: HEPARIN SODIUM 5,000 UNITS/ML VIAL 5000 UNITS SUB-Q ×3 (05:48→21:05)
[2020-11-14] MEDS: INSULIN ASPART (*BKC) 100 UNITS/ML 6 UNITS SUB-Q ×3 (07:37→17:25)
[2020-11-14 07:38] LABS: Glucose Point of Care 140 mg/dl (65-105)
[2020-11-14] MEDS: carvediloL 12.5 MG TABLET PO ×2 (08:29→16:54)
[2020-11-14] MEDS: ASPIRIN 81 MG ENTERIC TABLET PO (08:29)
[2020-11-14] MEDS: SENNOSIDES 8.6 MG TABLET PO ×2 (08:29→21:05)
[2020-11-14] MEDS: DOCUSATE SODIUM 100 MG CAPSULE PO ×2 (08:30→21:06)
[2020-11-14] MEDS: GABAPENTIN 300 MG CAPSULE PO (08:30)
[2020-11-14] MEDS: amLODIPine BESYLATE 5 MG TABLET PO (08:30)
[2020-11-14] MEDS: CLOPIDOGREL BISULFATE 75 MG TABLET PO (08:30)
[2020-11-14] MEDS: polyethylene glycoL 3350 17 GM POWD.PACK PO ×2 (08:31→21:28)
[2020-11-14] MEDS: PANTOPRAZOLE SOD SESQUIHYDRATE 20 MG TAB PO (08:31)
--- NOTE | 2020-11-14 09:17 | WPDNEURORHBP ---
Subjective Date/time seen: 11/14/20 09:17 Interval history: Chief Complaint: status post CABG with postop TIA/CVA The etiologic diagnosis is coronary artery disease The patient is a 80-year-old male with history of GERD, BPH, hypothyroidism, status post thyroidectomy, hyperlipidemia, hypertension, emphysema, peripheral vascular disease, status post aortofemoral bypass, carotid stenosis status post endarterectomy, gout, diabetes mellitus, diabetic neuropathy, history of tobacco use, chronic renal failure stage 3, pancytopenia, vitamin B12 deficiency, bladder cancer with chemotherapy with resolution, coronary artery disease. Patient presented to [facility] on 10/27/2020 with complaints of intermittent chest pain. EKG showed bradycardia with T-wave elevation. Blood pressure 207/122. Troponin levels were elevated at 3.78. Patient underwent cardiac catheterization which showed ostial and proximal left main 60% disease with calcified lesions and distal 75% disease. LAD showed proximal 90% calcified stenosis, 1st diagonal branch and 90% ostial stenosis. Left circumflex shows 75% stenosis of mid circumflex and 1st obtuse marginal. RCA show total occlusion with collaterals from the left system. Echo showed normal left ventricular systolic function with ejection fraction of 50%, moderate aortic valve sclerosis with restricted leaflet movement. This did not show aortic stenosis. Mild mitral valve regurgitation. Dilated inferior vena cava with left than 50% collapse on inspiration consistent with elevated right atrial pressure. Renal artery ultrasound showed moderate to severe left-sided renal artery stenosis. Patient was transferred to [facility] on 10/31/2020 for consideration of coronary artery surgery. The patient was placed on a heparin drip for NSTEMI and coronary artery disease including left main. Cardiothoracic surgeon,Dale Gleason, performed a CABG on 11/07/2020. Postop: patient was noted to have hyperkalemia, hyponatremia, acute postop pain, acute blood loss anemia, hyperglycemia. On 11/10/2020 patient had right-sided weakness. Neurology was consulted Dr. Niki Quinn MD. Head CT scan showed subacute/chronic infarcts. MRI /MRA was not able to be performed secondary to external pacer site. Neurology place the patient on aspirin Atrovent statin and Plavix. Patient's symptoms resolved. Sternal incision initially had a Provena wound VAC which was discontinued on 11/12/2020 .Pacer wires were were cut and not removed due to pancytopenia and risk of tamponade. Patient will be scheduled for interventional Radiology stenting at a later date. Patient was placed on a regular diet due to hyponatremia. REHAB HOSPITAL COURSE: Patient without complaints. Patient able to participate in all therapies. Review of Systems Review of Systems: All systems reviewed & are unremarkable except as noted in HPI and below Functional Status Ambulation Ability Ability to Ambulate 10 Feet: Contact Guard Ability to Ambulate 50 Feet With 2 Turns: Contact Guard Ability to Ambulate 150 Feet: Contact Guard Ambulation Assistive Devices: None Transfers Ability Ability to Transfer In/Out of Chair: Contact Guard Exam Narrative: Exam Narrative: Face is symmetric. External ocular muscles are intact. Neck is supple. Heart rate and rhythm are regular. Lungs reveal distant breath sounds. Abdomen is soft nontender. Chest reveals well approximated sternal incision with Steri-Strips. Retention sutures are noted below from drain sites. Bilateral upper and lower extremity strength are 4- out of 5. Patient is alert and oriented x4 Objective Data Vital Signs Vital Signs: Vital Signs - 24 hr 11/13/20 12:28 11/13/20 17:37 11/13/20 21:22 Temperature 36.2 C L 36.0 C L Pulse Rate 73 70 78 Respiratory Rate 18 16 Blood Pressure 160/53 H 151/59 H Pulse Oximetry 95 95 11/14/20 05:50 11/14/20 08:29 Temperature 36.4 C Pulse Rate 76 76
[2020-11-14 12:03] LABS: Glucose Point of Care 159 mg/dl (65-105)
--- NOTE | 2020-11-14 13:45 | RPD ---
INDIVIDUALIZED PLAN OF CARE FOR Anuel Amos Brief Synthesis of Pre-Admission Screen, Post-Admission Evaluation and Therapy Evaluations: The patient presents to rehab with coronary artery disease s/p CABG. Comorbidities include hyperkalemia, hyponatremia, TIA, BPH, gastroesophageal reflux disease, renal artery stenosis, NSTEMI, chronic kidney disease, diabetes mellitus with hyperglycemia, hypothyroidism, bladder cancer, COPD, neuropathy, peripheral vascular disease, and emphysema. The complexity of the patient's medical management, nursing, and therapy needs require an inpatient rehab hospital stay with a physician-led interdisciplinary team approach. The patient?s needs will be best met in an intensive program vs. at a lower level of care. The patient requires physician services for medical oversight, management of post-op complications (hyperkalemia, hyponatremia, diabetes mellitus with hyperglycemia, acute blood loss anemia, TIA) in setting of present comorbidities, and pain management. The patient requires nursing services for anticoagulation therapy, diabetes training, DVT prophylactics, IV administration, infection protection, medication management and education, pressure relief, and wound care. Deficits include:ADLs, Balance, Endurance, Family Training/Education, Mobility, Pain Management, ROM, Safety, Strength, Transfers Education Coordinator/Case Management for: Discharge Planning and Patient/Family Counseling Physical Therapy: 5 days per week for 90 minutes. Treatments may include: Therapeutic Exercise, Gait Training, Neuromuscular Re-education, Transfer Training, Community Reintegration, Bed Mobility, Patient/Family Education, Wheelchair Mobility Group Therapy/Concurrent Therapy Rationales: -Improve attention span during functional activities in a distracted environment. -Enhance problem solving and/or adequate judgment skills during functional activities in a distracted environment. -Promote increased safety awareness in a distracted environment to reduce fall risk with functional tasks, transfers, and ambulation to allow a more safe, self-sufficient return to the home environment. -Improve dynamic balance skills to promote safety and independence with functional activities in a distracted environment for maximum gain. Occupational Therapy: 5 days per week for 90 minutes. Treatments may include: Therapeutic Exercise, Therapeutic Activity, Cognitive Training, Self-Care Transfer Training, Community Reintegration, Home Management, Patient/Family Education, Wheelchair Mobility Training, Energy Conservation Training Group Therapy/Concurrent Therapy Rationales: -Allow therapist to observe and teach generalization and carry-over of skills learned in individual therapy. -Enhance problem solving and sequencing skills during therapeutic activities in a distracted environment. -Promote increased safety awareness in a realistic setting to reduce fall risk with functional tasks due to visual and verbal distractions. -Increase functional level with ADLs, ADL transfers and use of adaptive equipment through therapeutic activities with others while promoting safety to allow a more safe, self-sufficient return home. Medical Prognosis: Good Anticipated Length of Stay: 10 days Rehab Goals: Eating Goal: 06-Independent Oral Hygiene Goal: 06-Independent Toileting Hygiene Goal: 06-Independent Shower/Bathe Self Goal: 06-Independent Upper Body Dressing Goal: 06-Independent Lower Body Dressing Goal: 06-Independent Putting On/Taking Off Footwear Goal: 06-Independent Rolling Left and Right Goal: 06-Independent Sit to Lying Goal: 06-Independent Lying to Sitting on Side of Bed Goal: 06-Independent Sit to Stand Goal: 06-Independent Chair/Kcl-[id number] Transfer Goal: 06-Independent Toilet Transfer Goal: 06-Independent Car Transfer Goal: 06-Independent Walk 10' Goal: 06-Independent Walk 50' with Two Turns Goal: 06-Independent Walk 150' Goal: 06-Independent Walk 10' on Uneve
--- NOTE | 2020-11-14 14:13 | PCNSR ---
On 11/14/20, the student,Margy Gimenez, provided care and completed [facility] documentation on this patient. I have reviewed the student's documentation and agree with the findings.
[2020-11-14 17:19] LABS: Glucose Point of Care 118 mg/dl (65-105)
[2020-11-14] MEDS: GABAPENTIN 300 MG CAPSULE 900 MG PO (21:00)
[2020-11-14] MEDS: ATORVASTATIN 40 MG TABLET 80 MG PO (21:05)
[2020-11-14] MEDS: MELATONIN 3 MG TABLET PO (21:06)
[2020-11-14] MEDS: INSULIN GLARGINE (*BKC) 100 UNITS/ML 7 UNITS SUB-Q (21:06)
[2020-11-14] MEDS: FINASTERIDE 5 MG TABLET PO (21:06)
[2020-11-15 01:30] LABS: Glucose Point of Care 155 mg/dl (65-105)
[2020-11-15 05:44] VITALS: BP 146/60; PULSE 73; RESP 16; TEMP 36; O2SAT 92
[2020-11-15] MEDS: HEPARIN SODIUM 5,000 UNITS/ML VIAL 5000 UNITS SUB-Q ×3 (06:16→20:09)
[2020-11-15] MEDS: LEVOTHYROXINE SODIUM 150 MCG TABLET PO (06:17)
[2020-11-15 06:23] LABS: Glucose Point of Care 152 mg/dl (65-105)
[2020-11-15] MEDS: INSULIN ASPART (*BKC) 100 UNITS/ML 6 UNITS SUB-Q ×3 (08:16→17:44)
[2020-11-15 08:18] VITALS: PULSE 73
[2020-11-15] MEDS: DOCUSATE SODIUM 100 MG CAPSULE PO ×2 (08:18→20:05)
[2020-11-15] MEDS: ASPIRIN 81 MG ENTERIC TABLET PO (08:18)
[2020-11-15] MEDS: PANTOPRAZOLE SOD SESQUIHYDRATE 20 MG TAB PO (08:18)
[2020-11-15] MEDS: amLODIPine BESYLATE 5 MG TABLET PO (08:18)
[2020-11-15] MEDS: ACETAMINOPHEN 500 MG TABLET 1000 MG PO ×2 (08:18→12:09)
[2020-11-15] MEDS: carvediloL 12.5 MG TABLET PO ×2 (08:18→17:06)
[2020-11-15] MEDS: CLOPIDOGREL BISULFATE 75 MG TABLET PO (08:18)
[2020-11-15] MEDS: SENNOSIDES 8.6 MG TABLET PO ×2 (08:18→20:09)
[2020-11-15] MEDS: GABAPENTIN 300 MG CAPSULE PO (08:19)
[2020-11-15 12:00] LABS: Glucose Point of Care 150 mg/dl (65-105)
[2020-11-15 14:00] VITALS: BP 133/50; PULSE 70; RESP 16; TEMP 36.1; O2SAT 97
--- NOTE | 2020-11-15 14:05 | WPDNEURORHBP ---
Subjective Date/time seen: 11/15/20 14:05 Interval history: Chief Complaint: status post CABG with postop TIA/CVA The etiologic diagnosis is coronary artery disease The patient is a 80-year-old male with history of GERD, BPH, hypothyroidism, status post thyroidectomy, hyperlipidemia, hypertension, emphysema, peripheral vascular disease, status post aortofemoral bypass, carotid stenosis status post endarterectomy, gout, diabetes mellitus, diabetic neuropathy, history of tobacco use, chronic renal failure stage 3, pancytopenia, vitamin B12 deficiency, bladder cancer with chemotherapy with resolution, coronary artery disease. Patient presented to [facility] on 10/27/2020 with complaints of intermittent chest pain. EKG showed bradycardia with T-wave elevation. Blood pressure 207/122. Troponin levels were elevated at 3.78. Patient underwent cardiac catheterization which showed ostial and proximal left main 60% disease with calcified lesions and distal 75% disease. LAD showed proximal 90% calcified stenosis, 1st diagonal branch and 90% ostial stenosis. Left circumflex shows 75% stenosis of mid circumflex and 1st obtuse marginal. RCA show total occlusion with collaterals from the left system. Echo showed normal left ventricular systolic function with ejection fraction of 50%, moderate aortic valve sclerosis with restricted leaflet movement. This did not show aortic stenosis. Mild mitral valve regurgitation. Dilated inferior vena cava with left than 50% collapse on inspiration consistent with elevated right atrial pressure. Renal artery ultrasound showed moderate to severe left-sided renal artery stenosis. Patient was transferred to [facility] on 10/31/2020 for consideration of coronary artery bypass surgery. The patient was placed on a heparin drip for NSTEMI and coronary artery disease including left main. Cardiothoracic surgeon,Dale Gleason, performed a CABG on 11/07/2020. Postop: patient was noted to have hyperkalemia, hyponatremia, acute postop pain, acute blood loss anemia, hyperglycemia. On 11/10/2020 patient had right-sided weakness. Neurology was consulted Dr. Niki Quinn MD. Head CT scan showed subacute/chronic infarcts. MRI /MRA was not able to be performed secondary to external pacer site. Neurology placed the patient on aspirin Atorvastatin and Plavix. Patient's symptoms resolved. Sternal incision initially had a Provena wound VAC which was discontinued on 11/12/2020 .Pacer wires were were cut and not removed due to pancytopenia and risk of tamponade. Patient will be scheduled for interventional Radiology stenting at a later date. Patient was placed on a regular diet due to hyponatremia. REHAB HOSPITAL COURSE: Patient without complaints. Patient able to participate in all therapies. 11/15: doing well. did all the therapies this am, no new complaints. no fever, chlils, sob, chest pain. Review of Systems Review of Systems: All systems reviewed & are unremarkable except as noted in HPI and below Functional Status Ambulation Ability Ability to Ambulate 10 Feet: Independent Ability to Ambulate 50 Feet With 2 Turns: Independent Ability to Ambulate 150 Feet: Independent Ambulation Assistive Devices: None Transfers Ability Ability to Transfer In/Out of Chair: Independent Exam Narrative: Exam Narrative: Face is symmetric. External ocular muscles are intact. Neck is supple. Heart rate and rhythm are regular. Lungs reveal distant breath sounds. Abdomen is soft nontender. Chest reveals well approximated sternal incision with Steri-Strips. Retention sutures are noted below from drain sites. Bilateral upper and lower extremity strength are 4- out of 5. Patient is alert and oriented x4 Objective Data Vital Signs Vital Signs: Vital Signs - 24 hr 11/14/20 16:54 11/14/20 21:49 11/15/20 05:44 Temperature 97.1 F L 96.8 F L Pulse Rate 79 69 73 Respiratory Rate 16 16 Blood Pressure 158/56 H 146/6
[2020-11-15 17:06] VITALS: PULSE 70
[2020-11-15 17:08] LABS: Glucose Point of Care 95 mg/dl (65-105)
[2020-11-15 20:00] VITALS: PULSE 70; RESP 16; O2SAT 97
[2020-11-15] MEDS: ATORVASTATIN 40 MG TABLET 80 MG PO (20:06)
[2020-11-15] MEDS: FINASTERIDE 5 MG TABLET PO (20:07)
[2020-11-15] MEDS: MELATONIN 3 MG TABLET PO (20:08)
[2020-11-15] MEDS: GABAPENTIN 300 MG CAPSULE 900 MG PO (20:08)
[2020-11-15 20:23] LABS: Glucose Point of Care 123 mg/dl (65-105)
[2020-11-15] MEDS: INSULIN GLARGINE (*BKC) 100 UNITS/ML 7 UNITS SUB-Q (20:35)
[2020-11-15 22:00] VITALS: BP 151/52; PULSE 72; RESP 16; TEMP 36.3; O2SAT 96
[2020-11-16 06:00] VITALS: BP 139/54; PULSE 81; RESP 16; TEMP 36.4; O2SAT 94
[2020-11-16] MEDS: HEPARIN SODIUM 5,000 UNITS/ML VIAL 5000 UNITS SUB-Q ×3 (06:45→21:18)
[2020-11-16] MEDS: LEVOTHYROXINE SODIUM 150 MCG TABLET PO (06:45)
[2020-11-16 07:13] LABS: Glucose Point of Care 128 mg/dl (65-105)
[2020-11-16] MEDS: INSULIN ASPART (*BKC) 100 UNITS/ML 6 UNITS SUB-Q ×3 (07:15→17:31)
[2020-11-16] MEDS: GABAPENTIN 300 MG CAPSULE PO (08:32)
[2020-11-16 08:33] VITALS: PULSE 81
[2020-11-16] MEDS: carvediloL 12.5 MG TABLET PO ×2 (08:33→17:32)
[2020-11-16] MEDS: DOCUSATE SODIUM 100 MG CAPSULE PO ×2 (08:33→20:40)
[2020-11-16] MEDS: CLOPIDOGREL BISULFATE 75 MG TABLET PO (08:33)
[2020-11-16] MEDS: ACETAMINOPHEN 500 MG TABLET 1000 MG PO ×2 (08:33→12:29)
[2020-11-16] MEDS: amLODIPine BESYLATE 5 MG TABLET PO (08:34)
[2020-11-16] MEDS: PANTOPRAZOLE SOD SESQUIHYDRATE 20 MG TAB PO (08:34)
[2020-11-16] MEDS: SENNOSIDES 8.6 MG TABLET PO ×2 (08:34→20:40)
[2020-11-16] MEDS: polyethylene glycoL 3350 17 GM POWD.PACK PO (08:34)
[2020-11-16] MEDS: ASPIRIN 81 MG ENTERIC TABLET PO (08:34)
[2020-11-16 12:07] LABS: Glucose Point of Care 96 mg/dl (65-105)
[2020-11-16 14:00] VITALS: BP 141/63; PULSE 70; RESP 14; TEMP 36.1; O2SAT 98
[2020-11-16 17:32] VITALS: PULSE 70
[2020-11-16 20:31] LABS: Glucose Point of Care 114 mg/dl (65-105)
[2020-11-16 20:31] LABS: Glucose Point of Care 101 mg/dl (65-105)
[2020-11-16] MEDS: GABAPENTIN 300 MG CAPSULE 900 MG PO (20:39)
[2020-11-16] MEDS: MELATONIN 3 MG TABLET PO (20:40)
[2020-11-16] MEDS: ATORVASTATIN 40 MG TABLET 80 MG PO (20:43)
[2020-11-16] MEDS: FINASTERIDE 5 MG TABLET PO (20:44)
[2020-11-16 21:05] VITALS: BP 145/52; PULSE 71; RESP 16; TEMP 36.3; O2SAT 95
[2020-11-16] MEDS: INSULIN GLARGINE (*BKC) 100 UNITS/ML 7 UNITS SUB-Q (21:11)
[2020-11-17] MEDS: LEVOTHYROXINE SODIUM 150 MCG TABLET PO (05:52)
[2020-11-17] MEDS: HEPARIN SODIUM 5,000 UNITS/ML VIAL 5000 UNITS SUB-Q ×3 (05:52→20:57)
[2020-11-17 06:00] VITALS: BP 133/54; PULSE 75; RESP 16; TEMP 36.2; O2SAT 99
[2020-11-17 06:27] LABS: Glucose Point of Care 136 mg/dl (65-105)
[2020-11-17] MEDS: INSULIN ASPART (*BKC) 100 UNITS/ML 6 UNITS SUB-Q ×2 (07:13→12:10)
[2020-11-17] MEDS: amLODIPine BESYLATE 5 MG TABLET PO (09:03)
[2020-11-17] MEDS: ACETAMINOPHEN 500 MG TABLET 1000 MG PO ×2 (09:03→13:56)
[2020-11-17] MEDS: PANTOPRAZOLE SOD SESQUIHYDRATE 20 MG TAB PO (09:03)
[2020-11-17] MEDS: CLOPIDOGREL BISULFATE 75 MG TABLET PO (09:03)
[2020-11-17] MEDS: ASPIRIN 81 MG ENTERIC TABLET PO (09:03)
[2020-11-17] MEDS: GABAPENTIN 300 MG CAPSULE PO (09:04)
[2020-11-17 09:05] VITALS: PULSE 72
[2020-11-17] MEDS: carvediloL 12.5 MG TABLET PO ×2 (09:05→17:00)
[2020-11-17] MEDS: DOCUSATE SODIUM 100 MG CAPSULE PO ×2 (09:05→20:56)
--- NOTE | 2020-11-17 09:13 | WPDNEURORHBP ---
Subjective Date/time seen: 11/17/20 09:13 Interval history: Chief Complaint: status post CABG with postop TIA/CVA The etiologic diagnosis is coronary artery disease The patient is a 80-year-old male with history of GERD, BPH, hypothyroidism, status post thyroidectomy, hyperlipidemia, hypertension, emphysema, peripheral vascular disease, status post aortofemoral bypass, carotid stenosis status post endarterectomy, gout, diabetes mellitus, diabetic neuropathy, history of tobacco use, chronic renal failure stage 3, pancytopenia, vitamin B12 deficiency, bladder cancer with chemotherapy with resolution, coronary artery disease. Patient presented to [facility] on 10/27/2020 with complaints of intermittent chest pain. EKG showed bradycardia with T-wave elevation. Blood pressure 207/122. Troponin levels were elevated at 3.78. Patient underwent cardiac catheterization which showed ostial and proximal left main 60% disease with calcified lesions and distal 75% disease. LAD showed proximal 90% calcified stenosis, 1st diagonal branch and 90% ostial stenosis. Left circumflex shows 75% stenosis of mid circumflex and 1st obtuse marginal. RCA show total occlusion with collaterals from the left system. Echo showed normal left ventricular systolic function with ejection fraction of 50%, moderate aortic valve sclerosis with restricted leaflet movement. This did not show aortic stenosis. Mild mitral valve regurgitation. Dilated inferior vena cava with left than 50% collapse on inspiration consistent with elevated right atrial pressure. Renal artery ultrasound showed moderate to severe left-sided renal artery stenosis. Patient was transferred to [facility] on 10/31/2020 for consideration of coronary artery bypass surgery. The patient was placed on a heparin drip for NSTEMI and coronary artery disease including left main. Cardiothoracic surgeon,Dale Gleason, performed a CABG on 11/07/2020. Postop: patient was noted to have hyperkalemia, hyponatremia, acute postop pain, acute blood loss anemia, hyperglycemia. On 11/10/2020 patient had right-sided weakness. Neurology was consulted Dr. Niki Quinn MD. Head CT scan showed subacute/chronic infarcts. MRI /MRA was not able to be performed secondary to external pacer site. Neurology placed the patient on aspirin Atorvastatin and Plavix. Patient's symptoms resolved. Sternal incision initially had a Provena wound VAC which was discontinued on 11/12/2020 .Pacer wires were were cut and not removed due to pancytopenia and risk of tamponade. Patient will be scheduled for interventional Radiology stenting at a later date. Patient was placed on a regular diet due to hyponatremia. REHAB HOSPITAL COURSE: Patient without complaints. Patient able to participate in all therapies. 11/17/20 Patient doing well. Patient admits to occasional SOB and fatigue. NO pain . Patient having regular bowel movements. Will switch stool softeners to as needed. Review of Systems Review of Systems: All systems reviewed & are unremarkable except as noted in HPI and below Functional Status Ambulation Ability Ability to Ambulate 10 Feet: Independent Ability to Ambulate 50 Feet With 2 Turns: Independent Ability to Ambulate 150 Feet: Independent Ambulation Assistive Devices: None Transfers Ability Ability to Transfer In/Out of Chair: Independent Exam Narrative: Exam Narrative: Face is mildly asymmetric. External ocular muscles are intact. Neck is supple. Heart rate and rhythm are regular. Lungs reveal distant breath sounds. Abdomen is soft nontender. Chest reveals well approximated sternal incision with Steri-Strips. Retention sutures are noted below from drain sites. Bilateral upper and lower extremity strength are 4- out of 5. Patient is alert and oriented x4 Objective Data Vital Signs Vital Signs: Vital Signs - 24 hr 11/16/20 14:00 11/16/20 17:32 11/16/20 21:05 Temperature 36.1 C L 36.3 C L Pul
[2020-11-17 09:44] VITALS: PULSE 87; O2SAT 98
[2020-11-17 11:35] LABS: Glucose Point of Care 175 mg/dl (65-105)
[2020-11-17 14:00] VITALS: BP 125/55; PULSE 72; RESP 20; TEMP 36.2; O2SAT 98
[2020-11-17 16:31] LABS: Glucose Point of Care 96 mg/dl (65-105)
[2020-11-17 17:00] VITALS: PULSE 74
[2020-11-17] MEDS: ATORVASTATIN 40 MG TABLET 80 MG PO (20:57)
[2020-11-17] MEDS: MELATONIN 3 MG TABLET PO (20:57)
[2020-11-17] MEDS: GABAPENTIN 300 MG CAPSULE 900 MG PO (20:57)
[2020-11-17] MEDS: FINASTERIDE 5 MG TABLET PO (20:57)
[2020-11-17] MEDS: INSULIN GLARGINE (*BKC) 100 UNITS/ML 7 UNITS SUB-Q (21:27)
[2020-11-17 22:00] VITALS: BP 155/60; PULSE 64; RESP 18; TEMP 36.1; O2SAT 100
[2020-11-18 04:52] LABS: Glucose Point of Care 155 mg/dl (65-105)
[2020-11-18 06:00] VITALS: BP 151/66; PULSE 78; RESP 18; TEMP 35.8; O2SAT 99
[2020-11-18] MEDS: LEVOTHYROXINE SODIUM 150 MCG TABLET PO (06:07)
[2020-11-18] MEDS: HEPARIN SODIUM 5,000 UNITS/ML VIAL 5000 UNITS SUB-Q ×3 (06:07→21:10)
[2020-11-18] MEDS: INSULIN ASPART (*BKC) 100 UNITS/ML 6 UNITS SUB-Q ×3 (07:34→17:16)
[2020-11-18 08:22] VITALS: PULSE 74
[2020-11-18] MEDS: DOCUSATE SODIUM 100 MG CAPSULE PO ×2 (08:22→20:45)
[2020-11-18] MEDS: carvediloL 12.5 MG TABLET PO ×2 (08:22→17:15)
[2020-11-18] MEDS: GABAPENTIN 300 MG CAPSULE PO (08:22)
[2020-11-18] MEDS: ACETAMINOPHEN 500 MG TABLET 1000 MG PO ×2 (08:22→12:02)
[2020-11-18] MEDS: CLOPIDOGREL BISULFATE 75 MG TABLET PO (08:22)
[2020-11-18] MEDS: ASPIRIN 81 MG ENTERIC TABLET PO (08:22)
[2020-11-18] MEDS: PANTOPRAZOLE SOD SESQUIHYDRATE 20 MG TAB PO (08:23)
[2020-11-18] MEDS: amLODIPine BESYLATE 5 MG TABLET PO (08:23)
[2020-11-18 09:05] LABS: Anion Gap 10 mmol/L (8-16); Blood Urea Nitrogen 33 mg/dL (9-20); Carbon Dioxide 25 mmol/L (22-30); Chloride 98 mmol/L (98-107); Estimated CRCL calculation 39 ml/min; Estimated Glomerular Filt Rate 53; Glucose 234 mg/dL (75-110); Sodium 133 mmol/L (137-145)
--- NOTE | 2020-11-18 11:19 | WPDNEURORHBP ---
Subjective Date/time seen: 11/18/20 11:19 Interval history: Chief Complaint: status post CABG with postop TIA/CVA The etiologic diagnosis is coronary artery disease The patient is a 80-year-old male with history of GERD, BPH, hypothyroidism, status post thyroidectomy, hyperlipidemia, hypertension, emphysema, peripheral vascular disease, status post aortofemoral bypass, carotid stenosis status post endarterectomy, gout, diabetes mellitus, diabetic neuropathy, history of tobacco use, chronic renal failure stage 3, pancytopenia, vitamin B12 deficiency, bladder cancer with chemotherapy with resolution, coronary artery disease. Patient presented to [facility] on 10/27/2020 with complaints of intermittent chest pain. EKG showed bradycardia with T-wave elevation. Blood pressure 207/122. Troponin levels were elevated at 3.78. Patient underwent cardiac catheterization which showed ostial and proximal left main 60% disease with calcified lesions and distal 75% disease. LAD showed proximal 90% calcified stenosis, 1st diagonal branch and 90% ostial stenosis. Left circumflex shows 75% stenosis of mid circumflex and 1st obtuse marginal. RCA show total occlusion with collaterals from the left system. Echo showed normal left ventricular systolic function with ejection fraction of 50%, moderate aortic valve sclerosis with restricted leaflet movement. This did not show aortic stenosis. Mild mitral valve regurgitation. Dilated inferior vena cava with left than 50% collapse on inspiration consistent with elevated right atrial pressure. Renal artery ultrasound showed moderate to severe left-sided renal artery stenosis. Patient was transferred [facility] on 10/31/2020 for consideration of coronary artery bypass surgery. The patient was placed on a heparin drip for NSTEMI and coronary artery disease including left main. Cardiothoracic surgeon,Dale Gleason, performed a CABG on 11/07/2020. Postop: patient was noted to have hyperkalemia, hyponatremia, acute postop pain, acute blood loss anemia, hyperglycemia. On 11/10/2020 patient had right-sided weakness. Neurology was consulted Dr. Niki Quinn MD. Head CT scan showed subacute/chronic infarcts. MRI /MRA was not able to be performed secondary to external pacer site. Neurology placed the patient on aspirin Atorvastatin and Plavix. Patient's symptoms resolved. Sternal incision initially had a Provena wound VAC which was discontinued on 11/12/2020 .Pacer wires were were cut and not removed due to pancytopenia and risk of tamponade. Patient will be scheduled for interventional Radiology stenting at a later date. Patient was placed on a regular diet due to hyponatremia. REHAB HOSPITAL COURSE: Patient without complaints. Patient able to participate in all therapies. 11/17/20 Patient doing well. Patient admits to occasional SOB and fatigue. NO pain . Patient having regular bowel movements. Will switch stool softeners to as needed. 11/18/20 Patient without complaints. Patient feels prepared to go home tomorrow. Patient appreciative of the entire staff. Review of Systems Review of Systems: All systems reviewed & are unremarkable except as noted in HPI and below Functional Status Ambulation Ability Ability to Ambulate 10 Feet: Independent Ability to Ambulate 50 Feet With 2 Turns: Independent Ability to Ambulate 150 Feet: Independent Ambulation Assistive Devices: None Transfers Ability Ability to Transfer In/Out of Chair: Independent Exam Narrative: Exam Narrative: Face is mildly asymmetric. External ocular muscles are intact. Neck is supple. Heart rate and rhythm are regular. Lungs reveal distant breath sounds. Abdomen is soft nontender. Chest reveals well approximated sternal incision with Steri-Strips. Retention sutures are noted below from drain sites. Bilateral upper and lower extremity strength are 4- out of 5. Patient is alert and oriented x4 Patient is independent with
--- NOTE | 2020-11-18 11:22 | PCOTNOTE ---
Patient has demonstrated independence with all ADLs and functional mobility this date. Patient placed in the [facility] this date. Discussed with patient his goals for the program. Sheet with goals placed in patient's room. Patient verbalized an understanding to the program.
[2020-11-18 11:35] LABS: Glucose Point of Care 146 mg/dl (65-105)
[2020-11-18 11:52] LABS: Glucose Point of Care 117 mg/dl (65-105)
[2020-11-18 14:00] VITALS: BP 157/68; PULSE 78; RESP 14; TEMP 35.7; O2SAT 100
[2020-11-18 16:49] LABS: Glucose Point of Care 84 mg/dl (65-105)
[2020-11-18 17:15] VITALS: PULSE 78
[2020-11-18] MEDS: MELATONIN 3 MG TABLET PO (20:45)
[2020-11-18] MEDS: ATORVASTATIN 40 MG TABLET 80 MG PO (20:45)
[2020-11-18] MEDS: FINASTERIDE 5 MG TABLET PO (20:45)
[2020-11-18] MEDS: GABAPENTIN 300 MG CAPSULE 900 MG PO (20:46)
[2020-11-18 22:00] VITALS: BP 162/53; PULSE 69; RESP 16; TEMP 36.5; O2SAT 96
[2020-11-18] MEDS: INSULIN GLARGINE (*BKC) 100 UNITS/ML 7 UNITS SUB-Q (22:09)
[2020-11-18 22:11] LABS: Glucose Point of Care 123 mg/dl (65-105)
[2020-11-19 06:00] VITALS: BP 148/63; PULSE 75; RESP 16; TEMP 36.3; O2SAT 98
[2020-11-19] MEDS: HEPARIN SODIUM 5,000 UNITS/ML VIAL 5000 UNITS SUB-Q (06:03)
[2020-11-19] MEDS: LEVOTHYROXINE SODIUM 150 MCG TABLET PO (06:03)
[2020-11-19 06:39] LABS: Glucose Point of Care 129 mg/dl (65-105)
[2020-11-19] MEDS: INSULIN ASPART (*BKC) 100 UNITS/ML 6 UNITS SUB-Q (07:14)
[2020-11-19 08:48] VITALS: PULSE 70
[2020-11-19] MEDS: carvediloL 12.5 MG TABLET PO (08:48)
[2020-11-19] MEDS: PANTOPRAZOLE SOD SESQUIHYDRATE 20 MG TAB PO (08:48)
[2020-11-19] MEDS: CLOPIDOGREL BISULFATE 75 MG TABLET PO (08:48)
[2020-11-19] MEDS: ASPIRIN 81 MG ENTERIC TABLET PO (08:48)
[2020-11-19] MEDS: GABAPENTIN 300 MG CAPSULE PO (08:48)
[2020-11-19] MEDS: DOCUSATE SODIUM 100 MG CAPSULE PO (08:49)
[2020-11-19] MEDS: amLODIPine BESYLATE 5 MG TABLET PO (08:49)
[2020-11-19] MEDS: ACETAMINOPHEN 500 MG TABLET 1000 MG PO (08:49)
--- NOTE | 2020-11-19 10:32 | PM.DS ---
DS: Admitting Diagnosis Admitting Diagnosis Admitting Diagnosis: coronary artery disease with status post CABG and postop TIA/CVA DS: Discharge Diagnosis Discharge Diagnosis (1) Stage 3a chronic kidney disease: Code(s): N18.31 - Chronic kidney disease, stage 3a Status: Chronic Assessment and Plan: Monitor. Patient was taken off Lasix prior to discharge from [place] (2) Emphysema lung: Code(s): J43.9 - Emphysema, unspecified Status: Acute Assessment and Plan: monitor (3) Pancytopenia: Code(s): D61.818 - Other pancytopenia Status: Acute Assessment and Plan: pacer wires were capped and not removed (4) Chronic GERD: Code(s): K21.9 - Gastro-esophageal reflux disease without esophagitis Status: Chronic Assessment and Plan: patient is on Protonix but will resume omeprazole (5) Diabetic neuropathy: Code(s): E11.40 - Type 2 diabetes mellitus with diabetic neuropathy, unspecified Status: Chronic Assessment and Plan: gabapentin 300 mg in the morning and 900 mg in the evening (6) Hypothyroidism: Code(s): E03.9 - Hypothyroidism, unspecified Status: Chronic Assessment and Plan: levothyroxine seen 150 micro g daily (7) Gout: Code(s): M10.9 - Gout, unspecified Status: Chronic Assessment and Plan: Allopurinol is on hold (8) Hyperlipidemia: Code(s): E78.5 - Hyperlipidemia, unspecified Status: Chronic Assessment and Plan: Lipitor 80 mg daily (9) BPH (benign prostatic hyperplasia): Code(s): N40.0 - Benign prostatic hyperplasia without lower urinary tract symptoms Status: Chronic Assessment and Plan: Flomax 4 mg nightly (10) Non-ST elevation [place] (NSTEMI): Code(s): I21.4 - Non-ST elevation (NSTEMI) myocardial infarction Status: Acute Assessment and Plan: patient is on aspirin and Plavix (11) Acute on chronic kidney failure: Code(s): N17.9 - Acute kidney failure, unspecified; N18.9 - Chronic kidney disease, unspecified Status: Acute Assessment and Plan: monitor (12) DM2 (diabetes mellitus, type 2): Code(s): E11.9 - Type 2 diabetes mellitus without complications Status: Chronic Assessment and Plan: at home patient takes 14 units at bedtime. At discharge, patient is on Lantus 7 mg nightly with 6 units subcu t.i.d. (13) Hypertension, uncontrolled: Code(s): I10 - Essential (primary) hypertension Status: Chronic Assessment and Plan: Norvasc 5 mg daily. Coreg 12.5 mg b.i.d. (14) Status post coronary artery bypass graft: Code(s): Z95.1 - Presence of aortocoronary bypass graft Status: Acute Assessment and Plan: sternal precautions. (15) TIA (transient ischemic attack): Code(s): G45.9 - Transient cerebral ischemic attack, unspecified Status: Acute Assessment and Plan: Monitor. Patient remains on aspirin Plavix and a statin DS: Summary Hospital Course Hospital Course: Interval history: Chief Complaint: status post CABG with postop TIA/CVA The etiologic diagnosis is coronary artery disease The patient is a 80-year-old male with history of GERD, BPH, hypothyroidism, status post thyroidectomy, hyperlipidemia, hypertension, emphysema, peripheral vascular disease, status post aortofemoral bypass, carotid stenosis status post endarterectomy, gout, diabetes mellitus, diabetic neuropathy, history of tobacco use, chronic renal failure stage 3, pancytopenia, vitamin B12 deficiency, bladder cancer with chemotherapy with resolution, coronary artery disease. Patient presented to [facility] 10/[facility]/2020 with complaints of intermittent chest pain. EKG showed bradycardia with T-wave elevation. Blood pressure 207/122. Troponin levels were elevated at 3.78. Patient underwent cardiac catheterization which showed ostial and proximal l
== END 2020-11-19 10:30 | disposition home or self-care (01) | DRG 949 ==
PROVIDERS: Admitting Provider Physical Medicine & Rehabilitation; Visit Provider Physical Medicine & Rehabilitation
DX: Z48.812 Encounter for surgical aftercare following surgery on the circulatory system (principal); I21.4 Non-ST elevation (NSTEMI) myocardial infarction; G81.91 Hemiplegia, unspecified affecting right dominant side; D61.818 Other pancytopenia; I25.10 Atherosclerotic heart disease of native coronary artery without angina pectoris; I70.1 Atherosclerosis of renal artery; R29.810 Facial weakness; E87.5 Hyperkalemia; E11.22 Type 2 diabetes mellitus with diabetic chronic kidney disease; E11.65 Type 2 diabetes mellitus with hyperglycemia; E11.42 Type 2 diabetes mellitus with diabetic polyneuropathy; E11.51 Type 2 diabetes mellitus with diabetic peripheral angiopathy without gangrene; E03.9 Hypothyroidism, unspecified; E78.5 Hyperlipidemia, unspecified; I12.9 Hypertensive chronic kidney disease with stage 1 through stage 4 chronic kidney disease, or unspecified chronic kidney disease; J43.9 Emphysema, unspecified; K21.9 Gastro-esophageal reflux disease without esophagitis; N18.31 Chronic kidney disease, stage 3a; N40.0 Benign prostatic hyperplasia without lower urinary tract symptoms; Z87.891 Personal history of nicotine dependence; Z79.4 Long term (current) use of insulin; Z86.73 Personal history of transient ischemic attack (TIA), and cerebral infarction without residual deficits; Z85.51 Personal history of malignant neoplasm of bladder; Z95.1 Presence of aortocoronary bypass graft
CPT/HCPCS: 36415; 80048; 80053; 82948; 85025; 97110; 97116; 97161; 97165; 97530; 97535; A9270; J1644; J1815

== ENCOUNTER 2021-06-25 08:30 | Outpatient (RCR) | payer MEDICARE, MEDICAID, SELFPAY ==
[2021-04-02 09:23] LABS: Glucose Point of Care 132 mg/dl (65-105)
== END 2021-06-25 19:30 | disposition home or self-care (01) ==
LOC: ANHCPREHAB 08:30
DX: Z95.1 Presence of aortocoronary bypass graft (principal); Z95.5 Presence of coronary angioplasty implant and graft
CPT/HCPCS: 93798

== ENCOUNTER 2022-07-05 10:50 | Emergency (ER) | payer MEDICARE, MEDICAID, SELFPAY ==
[2022-07-05 10:57] VITALS: BP 167/58; PULSE 75; RESP 16; TEMP 36.5; O2SAT 98
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
[2022-07-05] MEDS: TETANUS,DIPHTHERIA,AC PERTUSSIS ADULT (0.5 ML) BOOSTRIX IM (11:34)
== END 2022-07-05 11:40 | disposition home or self-care (01) ==
PROVIDERS: Emergency Provider Physician Assistant
DX: S61.011A Laceration without foreign body of right thumb without damage to nail, initial encounter (principal); Z23 Encounter for immunization; I25.10 Atherosclerotic heart disease of native coronary artery without angina pectoris; E11.40 Type 2 diabetes mellitus with diabetic neuropathy, unspecified; E78.5 Hyperlipidemia, unspecified; E89.0 Postprocedural hypothyroidism; M10.9 Gout, unspecified; K21.9 Gastro-esophageal reflux disease without esophagitis; Z87.891 Personal history of nicotine dependence; Z95.1 Presence of aortocoronary bypass graft; Z79.4 Long term (current) use of insulin; Z79.82 Long term (current) use of aspirin; W18.09XA Striking against other object with subsequent fall, initial encounter
CPT/HCPCS: 90471; 90715; 99282

== ENCOUNTER 2023-01-24 18:28 | Emergency (ER) | payer MEDICARE, MEDICAID, SELFPAY ==
[2023-01-24] VITALS (25 sets, daily range): BP systolic 65–179; BP diastolic 41–113; PULSE 94–107; RESP 15–27; TEMP 36.7; O2SAT 86–97
--- NOTE | ~2023-01-24 | XR_ITS ---
EXAMINATION: XR chest 2V DATE: 01/24/2023 19:20 INDICATION: Dyspnea. Hematuria. TECHNIQUE: frontal and lateral views of the chest were obtained. COMPARISON: Chest radiograph dated 10/27/2020 FINDINGS: Hyperexpansion of lungs with flattening of the diaphragm and increased retrosternal clear space consi stent with emphysema better appreciated on prior CT of the abdomen and pelvis dated 08/17/2013. Mild s treaky atelectasis/scarring at the anterior lung bases. No other airspace opacities, pulmonary edema, pleural effusion or pneumothorax. Heart size is normal. Median sternotomy wires and mediastinal surg ical clips are seen, likely from prior coronary artery bypass grafting. There are also retained epica rdial pacemaker leads along the anteroinferior margin of the heart. Bilateral distal clavicle resecti ons. IMPRESSION: 1. Emphysema with mild atelectasis/scarring at the anterior lung bases. Reviewed, dictated and finalized at location A.
--- NOTE | 2023-01-24 18:57 | ED.GENADULT ---
HPI - General Adult General Chief complaint: Urogenital-Male <Bossman Faye MD - Last Filed: 01/26/23 07:44> Stated complaint: hematuria s/p procedure <Bossman Faye MD - Last Filed: 01/26/23 07:44> Time Seen by Provider: 01/24/23 19:01 <Bossman Faye MD - Last Filed: 01/26/23 07:44> History of Present Illness HPI narrative: Patient is an 82-year-old male who presents ER with hematuria. Sudden onset prior to arrival. Had blood the size of a quarter in his pad in his underwear. Patient underwent cystoscopy today at the [facility] for maintenance of his bladder cancer. He had some slight be bleeding after the procedure which she said was normal. He is not on blood thinners. He has no abdominal pain or nausea or vomiting. Blood pressure and oxygen noted to be low upon arrival here. After reevaluation patient's blood pressure in the opposite arm is markedly improved and his oxygenation is also normalized in that left arm. He reports he has a chronic injury to the right arm and it should not be used for blood pressures. <Bossman Faye MD - Last Filed: 01/26/23 07:44> Related Data Home medications: Home Medications Medication Instructions Recorded Confirmed atorvastatin 40 mg tablet 80 mg PO HS 10/27/20 03/27/21 gabapentin 300 mg capsule 300 mg PO [facility] 10/27/20 03/27/21 insulin glargine 100 unit/mL 7 unit subcut HS 10/27/20 03/27/21 subcutaneous solution tamsulosin 0.4 mg capsule 0.4 mg PO HS 10/27/20 03/27/21 aspirin 81 mg tablet,delayed 81 mg PO DAILY 11/13/20 03/27/21 release gabapentin 300 mg capsule 900 mg PO HS 11/13/20 03/27/21 cholecalciferol (vitamin D3) 25 25 mcg PO DAILY 03/27/21 03/27/21 mcg (1,000 unit) tablet levothyroxine 125 mcg tablet 125 mcg PO DAILY 03/27/21 03/27/21 omeprazole 40 mg capsule,delayed 40 mg PO DAILY 03/27/21 03/27/21 release <Bossman Faye MD - Last Filed: 01/26/23 07:44> Allergies/adverse reactions: Allergies Allergy/AdvReac Type Severity Reaction Status Date / Time adhesive tape Allergy Severe BLISTERS Verified 01/26/17 06:44 atenolol Allergy Unknown Verified 11/13/20 13:04 lisinopril Allergy Unknown Verified 11/13/20 13:04 sulfamethoxazole Allergy Unknown Verified 11/13/20 13:04 [From Bactrim] trimethoprim [From Bactrim] Allergy Unknown Verified 11/13/20 13:04 <Bossman Faye MD - Last Filed: 01/26/23 07:44> Review of Systems Review of Systems: All systems reviewed & are unremarkable except as noted in HPI and below <Bossman Faye MD - Last Filed: 01/26/23 07:44> Constitutional: Constitutional: Denies chills and Denies fever(s) <Bossman Faye MD - Last Filed: 01/26/23 07:44> ENT: Denies nasal congestion and Denies sore throat <Bossman Faye MD - Last Filed: 01/26/23 07:44> Cardiovascular: Cardiovascular: Denies chest pain, Denies rapid heart rate and Denies radiating jaw, neck or arm pain <Bossman Faye MD - Last Filed: 01/26/23 07:44> Respiratory: Respiratory: Denies cough and Denies dyspnea <Bossman Faye MD - Last Filed: 01/26/23 07:44> Gastrointestinal: Gastrointestinal: Denies abdominal pain, Denies nausea and Denies vomiting <Bossman Faye MD - Last Filed: 01/26/23 07:44> Genitourinary: Genitourinary: Reports hematuria, Denies oliguria, Denies dysuria and Denies urinary frequency <Bossman Faye MD - Last Filed: 01/26/23 07:44> [facility] Past Medical History Medical History: Medical History BPH (benign prostatic hyperplasia) Chronic GERD Diabetic neuropathy DM2 (diabetes mellitus, type 2) Gout Hyperlipidemia Hypothyroidism <Bossman Faye MD - Last Filed: 01/26/23 07:44> Surgical History Surgical History: Surgical History H/O aorto-femoral bypass H/O carotid endarterectomy H/O thyroidectomy History of surgery
[2023-01-24 19:25] LABS: Appearance Urine Clear (Clear); Bacteria Urine None Seen /hpf; Bilirubin Urine Negative (Negative); Blood Urine 2+ (Negative); Color Urine Yellow (Yellow); Glucose Urine UA 3+ mg/dL (Negative); Ketones Urine Negative (Negative); Leukocyte Esterase Ur Negative LEU/UL (Negative); Nitrate Urine Negative (Negative); Non Pathogenic Casts 0-2; Protein Urine 2+ mg/dL (Negative); RBC Urine >100 /hpf (0-2); Specific Grav Ur 1.018 (1.001-1.035); Squamous Epithelial Cell Urine None seen /hpf (Few); Urobilinogen Urine 0.2 mg/dL (<2.0)
[2023-01-24 19:27] LABS: Add Urine Microscopic? YES
[2023-01-24 19:27] LABS: Hematocrit 45.6 % (42.0-52.0); Hemoglobin 14.9 g/dL (14.0-18.0); Immature Platelet Fraction Pct 5.6 % (0.9-11.2); Mean Corpuscular HGB Conc 32.7 g/dl (32-36); Mean Corpuscular Hemoglobin 31.4 pg (26-34); Mean Corpuscular Volume 96.2 fl (80-100); Mean Platelet Volume 10.7 fl (7.4-10.4); Platelet Count Result 80 k/mm3 (150-375); Red Blood Count 4.74 M/mm3 (4.6-6.20); Red Cell Distribution Width 13.2 % (11.5-14.5); White Blood Count 7.8 K/mm3 (4.5-10.0)
[2023-01-24 19:29] LABS: Prothrombin Time 13.7 Seconds (11.1-14.7)
[2023-01-24 19:30] LABS: Partial Thromboplastin Time 24.7 SECONDS (22.3-36.8)
[2023-01-24 19:32] LABS: Alanine Aminotransferase 20 U/L (6-50); Albumin Level 3.9 g/dL (3.5-5.1); Alkaline Phosphatase 95 U/L (38-126); Anion Gap 6 mmol/L (8-16); Aspartate Amino Transferase 23 U/L (17-59); Bilirubin,Total 1.2 mg/dL (0.2-1.3); Blood Urea Nitrogen 31 mg/dL (9-20); Calcium 8.7 mg/dL (8.4-10.2); Carbon Dioxide 24 mmol/L (22-30); Chloride 96 mmol/L (98-107); Estimated CRCL calculation 35 ml/min; Estimated Glomerular Filt Rate 45; Glucose 142 mg/dL (65-110); Potassium 4.7 mmol/L (3.4-5.0); Sodium 126 mmol/L (137-145)
[2023-01-24 20:03] LABS: Band Neutrophils Percent 11 % (0-6); Basophils Absolute Manual 0.07 K/mm3 (0.0-0.1); Basophils Percent Manual 1 % (0-1); Eosinophils Absolute Manual 0.07 K/mm3 (0.02-0.5); Eosinophils Percent Manual 1 % (0-4); Lymphocytes Absolute Manual 0.15 K/mm3 (1.1-4.5); Monocytes Absolute Manual 0.15 K/mm3 (0.1-0.90); Monocytes Percent Manual 2 % (3-9); Neutrophils Absolute Manual 7.33 K/mm3 (1.3-6.7); Neutrophils Percent Manual 83 % (46-73); Platelet Estimate Decreased (Adequate); Total Cells Counted 100
[2023-01-24 20:04] LABS: Schistocytes None Seen (NORMAL)
[2023-01-24] MEDS: SODIUM CHLORIDE 0.9% IV 1,000 ML 999 ML IV CONT (20:33)
== END 2023-01-24 23:18 | disposition home or self-care (01) ==
LOC: ANHED 19:23
PROVIDERS: Emergency Provider Emergency Medicine
DX: R31.9 Hematuria, unspecified (principal); E86.0 Dehydration; C67.9 Malignant neoplasm of bladder, unspecified; N40.0 Benign prostatic hyperplasia without lower urinary tract symptoms; E11.40 Type 2 diabetes mellitus with diabetic neuropathy, unspecified; E78.5 Hyperlipidemia, unspecified; E89.0 Postprocedural hypothyroidism; K21.9 Gastro-esophageal reflux disease without esophagitis; M10.9 Gout, unspecified; Z79.82 Long term (current) use of aspirin; Z79.4 Long term (current) use of insulin; Z87.891 Personal history of nicotine dependence; Z95.1 Presence of aortocoronary bypass graft
CPT/HCPCS: 36415; 71046; 80053; 81001; 85025; 85055; 85610; 85730; 87086; 87088; 96360; 99283; J7030

== ENCOUNTER 2023-06-09 15:28 | Inpatient (IN) | payer MEDICARE, MEDICAID, SELFPAY ==
--- NOTE | ~2023-06-09 | XR_ITS ---
EXAMINATION: XR chest 1V portable DATE: 06/09/2023 16:05 INDICATION: Weakness. TECHNIQUE: A single frontal view of the chest was obtained on 2 radiographs. COMPARISON: Chest 2 views 01/24/2023, CT abdomen and pelvis 08/17/2013 FINDINGS: There are airspace opacities at the lung bases. No pleural effusion or pneumothorax. The he art size is normal. Median sternotomy wires and mediastinal surgical clips are seen, likely from prio r coronary artery bypass grafting. IMPRESSION: 1. Airspace opacities at the lung bases, consistent with atelectasis versus pneumonia. Reviewed, dictated and finalized at location E. MAIL CHECKER IMPRESSION: 1. Airspace opacities at the lung bases, consistent with atelectasis versus pne umonia.
--- NOTE | ~2023-06-09 | CT_ITS ---
EXAMINATION: CT brain wo con DATE: 06/09/2023 16:38 INDICATION: Weakness. Shaking. TECHNIQUE: Computed tomography (CT) of the head was performed without intravenous contrast. The mA wa s adjusted according to patient size. Iterative reconstruction technique was employed. Exam dose: 75 6.67 mGy-cm total exam DLP. COMPARISON: None FINDINGS: The examination is limited by motion artifact. The patient was unable to stop shaking accor ding to the patient. Prominent bilateral vertebral artery calcifications and carotid siphon internal carotid artery calcif ications. There is chronic left occipital and posterior left parietal infarct. Chronic small chronic lacunar i nfarcts of left basal ganglia. No recent cerebrovascular accident is detected. No intracranial mass lesion or hemorrhage, midline shift or mass effect. There is cerebellar and central and cortical cerebral volume loss. No subdural or epidural hematoma. The paranasal sinuses and mastoid air cells are well developed and aerated. No skull fracture or bone destruction. IMPRESSION: Old left occipital, posterior parietal and left basal ganglia lacunar infarcts Reviewed, dictated and finalized at Location A. Reviewed, dictated and finalized at location L. YARD MANAGER IMPRESSION: Old left occipital, posterior parietal and left basal ganglia lacu linda infarcts
[2023-06-09 15:28] VITALS: TEMP 36.5
[2023-06-09 15:30] VITALS: BP 118/60; PULSE 87; RESP 18; O2SAT 95
[2023-06-09 15:45] VITALS: RESP 18; O2SAT 95
--- NOTE | 2023-06-09 15:48 | ECG_ITS ---
Measurements Intervals Onset Rate: 83 P: 45 WV: 121 QRS: 67 QRSD: 102 T: 250 QT: 410 QTc: 483 Interpretive Statements SINUS RHYTHM ST-T WAVE ABNORMALITY IN ANTEROLAT/INF LEADS- CONSIDER ISCHEMIA BASELINE ARTIFACT- I, II, III, AVR, AVL, AVF, V1, V4-V6 ABNORMAL ECG COMPARED TO ECG 10/27/2020 17:34:40 SINUS RHYTHM NOW PRESENT ST-T WAVE ABNORMALITY NOW PRESENT Electronically Signed On 06-09-2023 18:13:08 SONOGRAPHER by Ron Carbajal D.O.
[2023-06-09 16:09] LABS: Glucose Point of Care 88 mg/dl (65-105)
[2023-06-09 16:28] LABS: Bilirubin Urine Negative (Negative); Blood Urine 3+ (Negative); Glucose Urine UA Negative (Negative); Ketones Urine Negative (Negative); Leukocyte Esterase Ur 1+ LEU/UL (Negative); Nitrate Urine Negative (Negative); Protein Urine 1+ (Negative); Specific Grav Ur >= 1.030 (1.010-1.020); Urobilinogen Urine 0.2 mg/dL (0.2-1.0)
[2023-06-09] MEDS: DEXTROSE 5%/0.9% SOD CHL 1,000 ML 100 ML IV CONT (16:36)
[2023-06-09 16:37] LABS: Appearance Urine Cloudy (Clear); Color Urine Dark Yellow (Yellow)
[2023-06-09] MEDS: SODIUM CHLORIDE 0.9% IV 1,000 ML 999 ML IV CONT (16:37)
[2023-06-09 16:38] LABS: Bacteria Urine 1+ /hpf; Budding Yeast Urine Present /hpf; Squamous Epithelial Cell Urine Rare /hpf (Few); WBC Urine 21-30 /hpf (0-3)
[2023-06-09 17:19] LABS: Influenza A QL RT-PCR Negative (Negative); Influenza B QL RT-PCR Negative (Negative); RSV RNA, RT-PCR Negative (Negative); SARS-CoV-2 RNA PCR Negative (Negative)
[2023-06-09 17:21] VITALS: BP 109/61; PULSE 85; RESP 17; O2SAT 97
[2023-06-09 17:32] LABS: Hematocrit 40.3 % (37.0-46.0); Hemoglobin 10.6 g/dL (12.4-15.3); Red Blood Count 3.44 M/mm3 (4.70-6.10); White Blood Count 11.8 K/mm3 (4.8-10.8)
[2023-06-09 17:33] LABS: Mean Corpuscular HGB Conc 26.1 g/dL (32.0-36.0); Mean Corpuscular Hemoglobin 30.8 pg (27.0-31.0); Platelet Count Result 62 K/mm3 (150-420); Red Cell Distribution Width 17.3 % (11.6-14.4)
[2023-06-09 17:34] LABS: Mean Platelet Volume 12.7 fl (8.7-11.0)
[2023-06-09 17:35] LABS: Immature Granulocyte Percent A 0.8 % (0.0-0.0)
[2023-06-09 17:36] LABS: Basophils Absolute Auto 0.01 K/mm3 (0.00-0.10); Basophils Percent Auto 0.2 % (0.0-1.0); Immature Granulocyte Absolute 0.05 K/mm3 (0.00-0.00); Lymphocytes Absolute Auto 0.38 K/mm3 (1.10-4.50); Lymphocytes Percent Auto 6.5 % (18.0-42.0); Monocytes Percent Auto 5.1 % (2.0-11.0); Neutrophils Absolute Auto 5.2 K/mm3 (1.7-7.2); Neutrophils Percent Auto 87.4 % (50.0-70.0)
[2023-06-09 17:40] LABS: Alanine Aminotransferase 44 U/L (16-63); Albumin Level 1.3 g/dL (3.4-5.0); Alkaline Phosphatase 172 U/L (46-116); Anion Gap 10 mmol/L (8-16); Aspartate Amino Transferase 92 U/L (15-37); Bilirubin,Total 0.7 mg/dL (0.00-1.00); Blood Urea Nitrogen 56 mg/dL (7-18); CRP 10.3 mg/dL (0.0-0.9); Calcium 8.1 mg/dL (8.5-10.1); Carbon Dioxide 22 mmol/L (21-32); Chloride 102 mmol/L (98-108); Estimated CRCL calculation 23 ml/min; Estimated Glomerular Filt Rate 29; Glucose 124 mg/dL (70-99); Osmolality Calculated 294 mOsm/kg (285-295); Potassium 4.8 mmol/L (3.5-5.1); Sodium 134 mmol/L (136-145); Total Protein 4.3 g/dL (6.4-8.2)
[2023-06-09] MEDS: PIPERACILLN/TAZ 3.375GM/NS50ML 3.375 GM/50 ML BAG IVPB (17:56)
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
[2023-06-09 18:08] VITALS: PULSE 78; RESP 16; O2SAT 92
[2023-06-09 19:00] VITALS: BMI 20.9
[2023-06-09 21:46] LABS: Glucose Point of Care 103 mg/dl (65-105)
--- NOTE | 2023-06-09 22:00 | PC.NURSE ---
This nurse cleansed pressure ulcer to coccyx with wound cleanser and measured it. Length 2cm, Width 2 cm, and tunneling present. Tunneling at 12 oclock position is at 2.2cm. Tunneling at 3 oclock noted to be 3.6cm. No tunneling at 6 oclock position. Tunneling at 9 oclock position noted to be 1.6cm. Periwound reddened and skin not all intact. Pressure area noted to left heel also and outside of left pinky toe. Pictures taken and in chart.
[2023-06-10] VITALS: BP 107/46; PULSE 80; RESP 18; TEMP 36.4; O2SAT 95
[2023-06-10] MEDS: MORPHINE SULFATE (*CRX) 2 MG/ML INJ IV PUSH ×3 (00:32→10:21)
[2023-06-10] MEDS: DEXTROSE 5%/0.9% SOD CHL 1,000 ML 100 ML IV CONT (02:59)
[2023-06-10 06:01] LABS: Basophils Absolute Auto 0.01 K/mm3 (0.00-0.10); Basophils Percent Auto 0.1 % (0.0-1.0); Hematocrit 36.1 % (37.0-46.0); Hemoglobin 11.4 g/dL (12.4-15.3); Immature Granulocyte Absolute 0.11 K/mm3 (0.00-0.00); Immature Granulocyte Percent A 0.8 % (0.0-0.0); Immature Platelet Fraction Pct 3.9 % (1.0-7.0); Lymphocytes Absolute Auto 0.67 K/mm3 (1.10-4.50); Lymphocytes Percent Auto 4.7 % (18.0-42.0); Mean Corpuscular HGB Conc 31.6 g/dL (32.0-36.0); Mean Corpuscular Hemoglobin 30.4 pg (27.0-31.0); Mean Corpuscular Volume 96.3 fL (78.0-102.0); Mean Platelet Volume 9.8 fl (8.7-11.0); Monocytes Absolute Auto 0.51 K/mm3 (0.10-0.90); Monocytes Percent Auto 3.6 % (2.0-11.0); Neutrophils Percent Auto 90.8 % (50.0-70.0); Platelet Count Result 65 K/mm3 (150-420); Red Blood Count 3.75 M/mm3 (4.70-6.10); Red Cell Distribution Width 17.3 % (11.6-14.4); White Blood Count 14.3 K/mm3 (4.8-10.8)
[2023-06-10 06:18] LABS: Alanine Aminotransferase 46 U/L (16-63); Albumin Level 1.7 g/dL (3.4-5.0); Alkaline Phosphatase 177 U/L (46-116); Anion Gap 7 mmol/L (8-16); Aspartate Amino Transferase 98 U/L (15-37); Bilirubin,Total 0.6 mg/dL (0.00-1.00); Blood Urea Nitrogen 52 mg/dL (7-18); Calcium 8.1 mg/dL (8.5-10.1); Carbon Dioxide 27 mmol/L (21-32); Chloride 106 mmol/L (98-108); Estimated CRCL calculation 23 ml/min; Estimated Glomerular Filt Rate 35; Glucose 142 mg/dL (70-99); Osmolality Calculated 306 mOsm/kg (285-295); Potassium 3.8 mmol/L (3.5-5.1); Sodium 140 mmol/L (136-145); Total Protein 4.2 g/dL (6.4-8.2)
[2023-06-10 08:07] LABS: Glucose Point of Care 142 mg/dl (65-105)
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
[2023-06-10] MEDS: ONDANSETRON INJ 4 MG/2 ML VIAL IV PUSH (10:21)
[2023-06-10] MEDS: ATROPINE SULFATE 1% OPHTH SOLN 5 ML BOTTLE SUBLINGUAL (10:21)
[2023-06-10] MEDS: LORazepam INJ (*CRX) 2 MG/ML VIAL IV PUSH (11:03)
[2023-06-10] MEDS: MORPHINE SULFATE ORAL CONC SOL (*CRX) 10 MG/0.5 ML SYRINGE PO ×3 (12:59→16:25)
--- NOTE | 2023-06-10 13:05 | PC.NURSE ---
The 5% dextrose was discontinued at 1000 by CUSTOMER SOLUTIONS COORDINATOR Greyson.
--- NOTE | 2023-06-10 14:36 | PC.NURSE ---
Pt has been declining rapidly and is now non responsive. Family at bedside. Pt is comfort care at this time. RN has been giving liquid Roxinol and Lorazepam to keep the pt comfortable. This has been keeping him comfortable.
[2023-06-10] MEDS: LORazepam (*CRX) 2 MG/ML 30 ML ORAL CONCENTRATE PO ×2 (15:38→17:38)
--- NOTE | 2023-06-10 18:03 | PC.NURSE ---
family notified rn that they think pt has stopped breathing, observed for pulse/breath sounds by rn and chargemaster analyst, none noted, nurse practitioner notified, family is waiting on some more family members to come say goodbye and then will be ready to begin process of notification of home
--- NOTE | 2023-06-10 18:57 | P.DN_ITS ---
Discharge Summary Date and Time Date of : 06/10/23 Time of : 18:00 Provider Pronounced By: Olga Rand RN, Zaki Bustamante RN Probable Cause of Probable Cause of : sepsis Summary Hospital Course: Patient was admitted after initial workup in the emergency department showed sepsis. Patient received initial treatment for sepsis but then the reason for admission at [facility] was to pursue comfort measures only. Spoke with family to confirm their intention and there was are momentary talk about treating patient for sepsis. After explaining process of doing such, family unanimously consented to proceed with comfort measures only. We stopped all curative measures and initiated pain and anxiety control. Hospice was consulted in case patient survived the weekend. Patient at 1800. Additional Data Confirmation of as documented by pronouncing clinician: Pupillary Reflex, Palpable Pulses, Response to Stimuli, Heart Tones and Breath Sounds Name of Provider Notified: Paulette Mckeon Time Provider Notified: 18:10 Provider Requests Autopsy: No Family Requests Autopsy: No Date [facility] Notified of : 06/10/23 Time [facility] Notified of : 18:15
--- NOTE | 2023-06-10 21:22 | PC.NURSE ---
lard tub washer here to order picker body, family has taken all personal belongings and lard tub washer is aware to contact lisa richardson in the morning with further instructions, baig and all patches removed
== END 2023-06-10 20:40 | disposition expired | DRG 951 ==
LOC: CHSED 18:06 → CHS2ND 21:27
PROVIDERS: Admitting Provider Internal Medicine; Emergency Provider Emergency Medicine; PCP Family Medicine; Visit Provider Internal Medicine
DX: Z51.5 Encounter for palliative care (principal); A41.9 Sepsis, unspecified organism; J18.9 Pneumonia, unspecified organism; N40.0 Benign prostatic hyperplasia without lower urinary tract symptoms; K21.9 Gastro-esophageal reflux disease without esophagitis; E11.40 Type 2 diabetes mellitus with diabetic neuropathy, unspecified; E78.5 Hyperlipidemia, unspecified; E03.9 Hypothyroidism, unspecified; I12.9 Hypertensive chronic kidney disease with stage 1 through stage 4 chronic kidney disease, or unspecified chronic kidney disease; I10 Essential (primary) hypertension; L89.152 Pressure ulcer of sacral region, stage 2; L89.629 Pressure ulcer of left heel, unspecified stage; Z87.891 Personal history of nicotine dependence; Z79.82 Long term (current) use of aspirin; Z79.4 Long term (current) use of insulin
CPT/HCPCS: 36415; 70450; 71045; 80053; 82948; 85025; 85055; 86140; 87086; 87637; 93005; 96361; 96365; 96375; 96376; 99285; A9270; G0378; J2060; J2270; J2405; J2543; J7030; J7042